=== PATIENT | female | born 1965 | race Caucasian/White ===

== ENCOUNTER → 2017-03-23 | Outpatient (CLI) | payer OTHER ==
[~2017-03-23] MED LIST: ACET-1256 PO; PRENTAB26 PO
[2017-03-23 14:47] LABS: BASO % 0.5 %; BASO ABS # 0.05 K/uL (0-0.2); COMPLETE YES; EOS % 13.1 %; HEMATOCRIT 44.3 % (37-47); IG% 0.1 %; LYMPH % 26.7 %; LYMPH ABS # 2.95 K/uL (1.2-3.4); MEAN CELL VOLUME 89.9 fL (80-100); MEAN CORPUSCULAR HEMOGLOBIN 28.4 pg (25-34); MEAN CORPUSCULAR HGB CONC 31.6 g/dl (32-36); MEAN PLATELET VOLUME 11.4 fL (7.4-10.4); MONO % 7.5 %; NEUT % 52.1 %; PLATELET COUNT 369 K/uL (130-400); RED BLOOD COUNT 4.93 M/uL (4.2-5.4); WHITE BLOOD COUNT 11.04 K/uL (4.8-10.8)
[2017-03-23 15:07] LABS: AMYLASE 47 U/L (25-115); BLOOD UREA NITROGEN 11 mg/dl (7-18); BUN/CREATININE RATIO 11.1 (10-20); CALCIUM 9.4 mg/dl (8.5-10.1); CARBON DIOXIDE 29 mmol/L (21-32); CHLORIDE 105 mmol/L (98-107); GLUCOSE 136 mg/dl (70-99); POTASSIUM 3.6 mmol/L (3.5-5.1); SODIUM 140 mmol/L (136-145)
== END | disposition home or self-care (01) ==
LOC: C.LAB1850 13:02
PROVIDERS: ATTEND Nurse Practitioner Adult Health
DX: E11.49 Type 2 diabetes mellitus with other diabetic neurological complication (principal); E11.65 Type 2 diabetes mellitus with hyperglycemia; E66.01 Morbid (severe) obesity due to excess calories; R94.6 Abnormal results of thyroid function studies

== ENCOUNTER → 2017-06-19 | Outpatient (CLI) | payer OTHER ==
[2017-06-19 12:21] LABS: ESTIMATED AVERAGE GLUCOSE 160 mg/dl; HA1C FLAG Normal (Normal)
== END | disposition home or self-care (01) ==
LOC: C.LAB1850 10:23
PROVIDERS: ATTEND Nurse Practitioner Adult Health
DX: E11.49 Type 2 diabetes mellitus with other diabetic neurological complication (principal)

== ENCOUNTER → 2017-06-23 | Outpatient (CLI) | payer OTHER ==
[2017-06-23 16:53] LABS: THYROID STIMULATING HORMONE 1.91 uIu/ml (0.300-4.500)
== END | disposition home or self-care (01) ==
LOC: C.LAB1850 15:12
PROVIDERS: ATTEND Nurse Practitioner Adult Health
DX: E11.65 Type 2 diabetes mellitus with hyperglycemia (principal); E11.49 Type 2 diabetes mellitus with other diabetic neurological complication; E66.01 Morbid (severe) obesity due to excess calories; R94.6 Abnormal results of thyroid function studies

== ENCOUNTER → 2017-11-17 | Outpatient (CLI) | payer OTHER ==
[2017-11-18 07:56] LABS: HEMOGLOBIN A1C 6.8 % (4.5-5.6)
== END | disposition home or self-care (01) ==
LOC: C.LAB1850 13:42
PROVIDERS: ATTEND Nurse Practitioner Adult Health
DX: E11.49 Type 2 diabetes mellitus with other diabetic neurological complication (principal)

== ENCOUNTER 2022-03-17 18:41 | Inpatient (IN) ==
[2022-03-17] MEDS ORDERED: SODIUM CHLORIDE 0.9% 1000ML 1,000 ML IV STA (18:59)
[2022-03-17] MEDS ORDERED: ONDANSETRON INJ 2 MG/ML 2 ML VIAL IV STA (18:59)
[2022-03-17 19:12] LABS: Basophils # (auto) 0.02 K/uL (0-0.2); Basophils % (auto) 0.1 %; Hematocrit (blood only) 43.5 % (34.1-44.9); Hemoglobin 14.2 g/dl (12.0-16.0); Immature Granulocytes # (auto) 0.06 K/uL (0.00-0.02); Immature Granulocytes % (auto) 0.4 %; Lymphocytes # (auto) 1.15 K/uL (1.2-3.4); Lymphocytes % (auto) 8.2 %; Mean Corpuscular Hemoglobin 28.7 pg (25.0-34.0); Mean Corpuscular Hgb Conc 32.6 g/dL (32.0-36.0); Mean Corpuscular Volume 87.9 fL (80.0-100.0); Mean Platelet Volume 10.9 fL (9.4-12.3); Monocytes # (auto) 0.72 K/uL (0.24-0.82); Monocytes % (auto) 5.2 %; Neutrophils # (auto) 12.01 K/uL (1.4-6.5); Neutrophils % (auto) 86.1 %; Platelet Count 464 K/uL (130-400); RDW Standard Deviation 51.7 fL (36.4-46.3); Red Blood Count 4.95 M/uL (3.93-5.22); White Blood Count 13.96 K/ul (4.8-10.8)
--- NOTE | 2022-03-17 19:20 | XRay Report ---
XR chest 1V portable HISTORY: Vomiting. COMPARISON: Chest CT 10/29/2019. FINDINGS: The lungs are clear. Cardiac silhouette is normal in size. No pleural effusions. No pneumot horax. IMPRESSION: No acute process. ACT 112: Negative or not required by law. Electronically signed by: Jan Gatica M.D. 03/17/2022 7:18 PM
--- NOTE | 2022-03-17 19:24 | Emergency Department Note ---
Impression & Plan DKA (diabetic ketoacidosis), Nausea, Metabolic acidosis ED Provider Note NAME: HUA CUNNINGHAM AGE: 56 SEX: F : 1965 ARRIVES VIA: Walk-In INFORMANT: Patient, ED PROVIDER(S): Joe Abernathy DO CHIEF COMPLAINT: Abdominal pain HPI: The patient is a 56-year-old female who presented to the emergency department for an evaluation of nausea. The patient states she had a history of gastric bypass. The patient states that she has had problems ever since the surgery where she will have some nausea. Recently symptoms have become much worse where she started to have dry heaving. She notices upper abdominal pain. She has had no vomiting because of the previous gastric bypass. She notices no diarrhea or fever. The patient called her surgeon today and was instructed to go to a clear liquid diet as well as use Zofran. These modalities have not been helping. The patient notices generalized weakness. She denies having any chest pain. She denies having any difficulty breathing. She is had no swelling in her legs. He denies having any GI bleeding. ROS: See above HPI for pertinent positives & negatives. A total of 10 systems reviewed and were otherwise negative. PAST MEDICAL HISTORY: See Below PAST SURGICAL HISTORY: See Below FAMILY HISTORY: See Below SOCIAL HISTORY: See Below HOME MEDICATIONS: See Below ALLERGIES: See Below VITALS: See Below PHYSICAL EXAMINATION: GENERAL: The patient is awake and alert. The patient is somewhat anxious appearing. She appears to be uncomfortable. EYES: The conjunctivae are clear. The pupils are round and reactive. EARS, NOSE, MOUTH AND THROAT: The nose is without any evidence of any deformity. NECK: The neck is nontender and supple. RESPIRATORY: Normal respiratory effort is noted there is no evidence of wheezing rhonchi or rales CARDIOVASCULAR: Tachycardic and regular heart sounds are noted auscultation. There is no definite murmur. GASTROINTESTINAL: The abdomen was soft. The abdomen was mildly distended. There was some tenderness in the epigastric region. There is no guarding rigidity. MUSCULOSKELETAL/EXTREMITIES: There is no evidence of gross deformity full range of motion is noted in the hips and shoulders. SKIN: There is no obvious evidence of any rash. There are no petechiae, pallor or cyanosis noted. NEUROLOGIC: Patient is awake alert and oriented x3. MEDICAL DECISION MAKING: The patient is a 56-year-old female who presented to the emergency department because she was acting inappropriately and had nausea. The patient has a history of diabetes. She also has a history of gastric bypass. The patient was treated with IV fluids and IV insulin in the emergency department. She was reevaluated multiple times. Her presentation appears to be consistent with DKA. I discussed her condition with her and her significant other. He states that she had a very similar episode and presented to [facility] recently and at that time she was also found to have DKA. I discussed the patient's laboratory and radiographic studies [facility] have agreed to evaluate the patient in the emergency department for further management and disposition. Triage Nursing notes reviewed. Prior medical records reviewed Vital Signs: reviewed and remarkable for hypertension and tachycardia. Differential diagnosis: Etiologies such as appendicitis, diverticulitis, obstruction, inflammatory bowel disease, renal colic, PUD, biliary pathology, pancreatitis, mesenteric ischemia, aortic pathology, infections, genitourinary, UTI, perforated viscus, as well as others were entertained. ER treatment provided: See below Diagnostics interpreted by me: ECG: EKG was obtained in the emergency department. My interpretation is sinus rhythm at 95 bpm. There is no ectopy. Early transition was noted. This was compared to a tracing from April 19, 2018. No changes were noted. Cardiac Monitoring: An order was placed for continuous cardiac monitoring. The monitor shows a rate of 170 bpm with sinus tachycardia. Laboratory studies: As stated above and show below. Imaging studies: See below Consultation(s): I discussed this case with Dr. Melendez who [facility] ED COURSE: Procedures: none Critical Care: I have personally spent greater than 65 minutes of critical care time in the direct management of this patient. This includes bedside care, interpretation of diagnostic studies, and testing, discussion with consultants, patient, and family members, and other required patient management activities. This 65 minutes is in excess of all separately billable procedures. Past Med/Surg History Medical History Depression with anxiety Diabetic peripheral neuropathy DJD (degenerative joint disease) Dysesthesia Dyslipidemia Elevated TSH Fatigue Hypertension Low calcium levels Myalgia and myositis Obesity, morbid, BMI 40.0-49.9 Obstructive sleep apnea Recurrent left upper quadrant abdominal pain Vitamin D insufficiency Surgical History Gastric bypass status for obesity H/O wisdom tooth extraction Family History Father Hypertension Coronary heart disease Diabetes Mother Hypertension Leukemia Hypothyroid Sister Hypothyroid Social History Smoking Status: Never smoker Hx Alcohol Use: No marital status: Feels Safe at Home: Yes Allergies Allergies Allergy/AdvReac Type Severity Reaction Status Date / Time liraglutide [From Victoza] Allergy Hives Verified 08/27/20 14:08 Home Meds Home Medications Medication Instructions Recorded Confirmed atorvastatin 10 mg tablet 10 mg PO DAILY 04/19/18 08/27/20 biotin 10,000 mcg capsule 10,000 mcg PO DAILY 04/19/18 08/27/20 bupropion HCl 150 mg tablet,12 hr 150 mg PO DAILY 04/19/18 08/27/20 sustained-release cholecalciferol (vitamin D3) 50 2,000 unit PO DAILY 04/19/18 08/27/20 mcg (2,000 unit) tablet (Vitamin D3) cyanocobalamin (vitamin B-12) 1,000 mcg PO DAILY 04/19/18 08/27/20 1,000 mcg tablet (Vitamin B-12) dulaglutide 1.5 mg/0.5 mL 1.5 mg subcut WK 04/19/18 08/27/20 subcutaneous pen injector (Trulicity) ferrous sulfate 325 mg (65 mg 325 mg PO DAILY 04/19/18 08/27/20 iron) tablet lisinopril 5 mg tablet 5 mg PO DAILY 04/19/18 08/27/20 metformin 1,000 mg tablet 1,000 mg PO BID 04/19/18 08/27/20 sertraline 100 mg tablet (Zoloft) 150 mg PO DAILY 04/19/18 08/27/20 meloxicam 15 mg tablet 15 mg PO DAILY 05/28/19 08/27/20 modafinil 200 mg tablet 200 mg PO DAILY 05/28/19 08/27/20 gabapentin .Route 08/27/20 Previous Rx's Medication Instructions Recorded blood sugar diagnostic #150 ea 05/18/20 flash glucose sensor (FreeStyle #2 ea 06/07/21 Contreras 2 Sensor kit) insulin glargine 100 unit/mL (3 See Rx Instructions .Route 11/01/21 mL) subcutaneous pen (Lantus .COMPLEX #30 mL Solostar U-100 Insulin) levothyroxine 100 mcg tablet 100 mcg PO DAILY #30 tabs 11/22/21 Apidra SoloStar U-100 Insulin 100 See Rx Instructions .Route 02/23/22 unit/mL subcutaneous pen (insulin .COMPLEX #15 mL glulisine U-100) pen needle, diabetic 32 gauge x #150 ea 02/23/22" (BD Ultra-Fine Alis Pen Needle) acetone (urine) test (Ketostix #50 ea 03/08/22 strips) Results & Data (ED) Vital Signs Vital Signs - 24 hr 03/17/22 18:42 03/17/22 19:00 03/17/22 19:00 Temperature 36.4 C L Temperature Source Oral Pulse Rate 117 H Respiratory Rate 19 Respiratory Effort / Characteristics Non-Labored Respiratory Depth Normal Blood Pressure 154/82 H Blood Pressure Mean 106 Pulse Oximetry 96 100 100 Oxygen Delivery Method Room Air Sepsis Recent Fever Within 48 Hours No Sepsis New/Unexplained Change in Mental Status N/A Sepsis Action Taken by Nursing No Action Required Home Medications Current Medication List: was personally reviewed by me Laboratory Data Attestation: I reviewed the patient's lab results. Result diagrams: 03/17/22 18:59 03/17/22 18:59 Lab Results 03/17/22 03/17/22 03/17/22 Range/Units 18:45 18:47 18:48 WBC (4.8-10.8) K/ul RBC (3.93-5.22) M/uL Hgb (12.0-16.0) g/dl Hct (34.1-44.9) % MCV (80.0-100.0) fL MCH (25.0-34.0) pg MCHC (32.0-36.0) g/dL RDW Std Deviation (36.4-46.3) fL RDW Coeff of Any (11.5-14.5) % Plt Count (130-400) K/uL MPV (9.4-12.3) fL Immature Gran % (Auto) % Neut % (Auto) % Lymph % (Auto) % [place] % (Auto) % Eos % (Auto) % Baso % (Auto) % Neut # (Auto) (1.4-6.5) K/uL Lymph # (Auto) (1.2-3.4) K/uL [place] # (Auto) (0.24-0.82) K/uL Eos # (Auto) (0-0.50) K/uL Baso # (Auto) (0-0.2) K/uL Immature Gran # (Auto) (0.00-0.02) K/uL VBG pH (7.36-7.41) VBG pCO2 (38-50) mmHg VBG pO2 mmHg VBG HCO3 mmol/L VBG O2 Saturation % VBG Base Excess mEq/L Sodium (136-145) mmol/L Potassium (3.5-5.1) mmol/L Chloride (98-107) mmol/L Carbon Dioxide (21-32) mmol/L Anion Gap (3-11) BUN (6-23) mg/dl Creatinine (0.6-1.2) mg/dl Est Cr Clr Drug Dosing Est GFR ( Amer) ml/min Est GFR (Non-Af Amer) ml/min BUN/Creatinine Ratio (10-20) Glucose (70-99(Fasting)) mg/dl POC Glucose 384 H* 469 H* 391 H* (70-99) mg/dl Lactate (0.4-2.0) mmol/L Calcium (8.5-10.1) mg/dl Total Bilirubin (0.2-1.0) mg/dl AST (13-39) U/L ALT (7-52) U/L Alkaline Phosphatase (34-104) U/L Troponin I High Sens (0-14) pg/ml Total Protein (6.0-8.3) gm/dl Albumin (3.4-5.0) gm/dl Globulin (2.5-4.0) gm/dl Albumin/Globulin Ratio (0.9-2) Lipase (11-82) U/L HCG, Qual (Negative) HCG, Quant mIU/ml Urine Color Urine Appearance (Clear) Urine pH (4.5-7.5) Ur Specific [place] (1.000-1.030) Urine Protein (Negative) Urine Glucose (UA) (Negative) Urine Ketones (Negative) Urine Blood (Negative) Urine Nitrite (Negative) Urine Bilirubin (Negative) Urine Urobilinogen (Negative) Ur Leukocyte Esterase (Negative) Urine WBC (Auto) (0-5) /hpf Urine RBC (Auto) (0-4) /hpf U Hyaline Cast (Auto) (0-5) /lpf U Epithel Cells (Auto) (0-5) /lpf Urine Bacteria (Auto) (Negative) SARS-CoV-2, RNA, NAAT (NEGATIVE) 03/17/22 03/17/22 03/17/22 Range/Units 18:59 18:59 18:59 WBC 13.96 H (4.8-10.8) K/ul RBC 4.95 (3.93-5.22) M/uL Hgb 14.2 (12.0-16.0) g/dl Hct 43.5 (34.1-44.9) % MCV 87.9 (80.0-100.0) fL MCH 28.7 (25.0-34.0) pg MCHC 32.6 (32.0-36.0) g/dL RDW Std Deviation 51.7 H (36.4-46.3) fL RDW Coeff of Any 16.0 H (11.5-14.5) % Plt Count 464 H (130-400) K/uL MPV 10.9 (9.4-12.3) fL Immature Gran % (Auto) 0.4 % Neut % (Auto) 86.1 % Lymph % (Auto) 8.2 % [place] % (Auto) 5.2 % Eos % (Auto) 0.0 % Baso % (Auto) 0.1 % Neut # (Auto) 12.01 H (1.4-6.5) K/uL Lymph # (Auto) 1.15 L (1.2-3.4) K/uL [place] # (Auto) 0.72 (0.24-0.82) K/uL Eos # (Auto) 0.00 (0-0.50) K/uL Baso # (Auto) 0.02 (0-0.2) K/uL Immature Gran # (Auto) 0.06 H (0.00-0.02) K/uL VBG pH (7.36-7.41) VBG pCO2 (38-50) mmHg VBG pO2 mmHg VBG HCO3 mmol/L VBG O2 Saturation % VBG Base Excess mEq/L Sodium 138 (136-145) mmol/L Potassium 3.3 L (3.5-5.1) mmol/L Chloride 101 (98-107) mmol/L Carbon Dioxide 11 L (21-32) mmol/L Anion Gap 26 H (3-11) BUN 15 (6-23) mg/dl Creatinine 1.21 H (0.6-1.2) mg/dl Est Cr Clr Drug Dosing Not Reportable Est GFR ( Amer) 58.7 ml/min Est GFR (Non-Af Amer) 50.7 ml/min BUN/Creatinine Ratio 12.4 (10-20) Glucose 408 H* (70-99(Fasting)) mg/dl POC Glucose (70-99) mg/dl Lactate (0.4-2.0) mmol/L Calcium 9.2 (8.5-10.1) mg/dl Total Bilirubin 0.3 (0.2-1.0) mg/dl AST 24 (13-39) U/L ALT 22 (7-52) U/L Alkaline Phosphatase 89 (34-104) U/L Troponin I High Sens 15.5 H (0-14) pg/ml Total Protein 7.3 (6.0-8.3) gm/dl Albumin 4.2 (3.4-5.0) gm/dl Globulin 3.1 (2.5-4.0) gm/dl Albumin/Globulin Ratio 1.4 (0.9-2) Lipase 20 (11-82) U/L HCG, Qual Positive (Negative) HCG, Quant mIU/ml Urine Color Urine Appearance (Clear) Urine pH (4.5-7.5) Ur Specific [place] (1.000-1.030) Urine Protein (Negative) Urine Glucose (UA) (Negative) Urine Ketones (Negative) Urine Blood (Negative) Urine Nitrite (Negative) Urine Bilirubin (Negative) Urine Urobilinogen (Negative) Ur Leukocyte Esterase (Negative) Urine WBC (Auto) (0-5) /hpf Urine RBC (Auto) (0-4) /hpf U Hyaline Cast (Auto) (0-5) /lpf U Epithel Cells (Auto) (0-5) /lpf Urine Bacteria (Auto) (Negative) SARS-CoV-2, RNA, NAAT (NEGATIVE) 03/17/22 03/17/22 03/17/22 Range/Units 18:59 19:10 19:25 WBC (4.8-10.8) K/ul RBC (3.93-5.22) M/uL Hgb (12.0-16.0) g/dl Hct (34.1-44.9) % MCV (80.0-100.0) fL MCH (25.0-34.0) pg MCHC (32.0-36.0) g/dL RDW Std Deviation (36.4-46.3) fL RDW Coeff of Any (11.5-14.5) % Plt Count (130-400) K/uL MPV (9.4-12.3) fL Immature Gran % (Auto) % Neut % (Auto) % Lymph % (Auto) % [place] % (Auto) % Eos % (Auto) % Baso % (Auto) % Neut # (Auto) (1.4-6.5) K/uL Lymph # (Auto) (1.2-3.4) K/uL [place] # (Auto) (0.24-0.82) K/uL Eos # (Auto) (0-0.50) K/uL Baso # (Auto) (0-0.2) K/uL Immature Gran # (Auto) (0.00-0.02) K/uL VBG pH 7.23 L (7.36-7.41) VBG pCO2 26 L (38-50) mmHg VBG pO2 36 mmHg VBG HCO3 11 mmol/L VBG O2 Saturation 61.5 % VBG Base Excess -15.0 mEq/L Sodium (136-145) mmol/L Potassium (3.5-5.1) mmol/L Chloride (98-107) mmol/L Carbon Dioxide (21-32) mmol/L Anion Gap (3-11) BUN (6-23) mg/dl Creatinine (0.6-1.2) mg/dl Est Cr Clr Drug Dosing Est GFR ( Amer) ml/min Est GFR (Non-Af Amer) ml/min BUN/Creatinine Ratio (10-20) Glucose (70-99(Fasting)) mg/dl POC Glucose (70-99) mg/dl Lactate 2.2 H* (0.4-2.0) mmol/L Calcium (8.5-10.1) mg/dl Total Bilirubin (0.2-1.0) mg/dl AST (13-39) U/L ALT (7-52) U/L Alkaline Phosphatase (34-104) U/L Troponin I High Sens (0-14) pg/ml Total Protein (6.0-8.3) gm/dl Albumin (3.4-5.0) gm/dl Globulin (2.5-4.0) gm/dl Albumin/Globulin Ratio (0.9-2) Lipase (11-82) U/L HCG, Qual (Negative) HCG, Quant 10 mIU/ml Urine Color Urine Appearance (Clear) Urine pH (4.5-7.5) Ur Specific [place] (1.000-1.030) Urine Protein (Negative) Urine Glucose (UA) (Negative) Urine Ketones (Negative) Urine Blood (Negative) Urine Nitrite (Negative) Urine Bilirubin (Negative) Urine Urobilinogen (Negative) Ur Leukocyte Esterase (Negative) Urine WBC (Auto) (0-5) /hpf Urine RBC (Auto) (0-4) /hpf U Hyaline Cast (Auto) (0-5) /lpf U Epithel Cells (Auto) (0-5) /lpf Urine Bacteria (Auto) (Negative) SARS-CoV-2, RNA, NAAT (NEGATIVE) 03/17/22 03/17/22 03/17/22 Range/Units 20:45 21:05 21:53 WBC (4.8-10.8) K/ul RBC (3.93-5.22) M/uL Hgb (12.0-16.0) g/dl Hct (34.1-44.9) % MCV (80.0-100.0) fL MCH (25.0-34.0) pg MCHC (32.0-36.0) g/dL RDW Std Deviation (36.4-46.3) fL RDW Coeff of Any (11.5-14.5) % Plt Count (130-400) K/uL MPV (9.4-12.3) fL Immature Gran % (Auto) % Neut % (Auto) % Lymph % (Auto) % [place] % (Auto) % Eos % (Auto) % Baso % (Auto) % Neut # (Auto) (1.4-6.5) K/uL Lymph # (Auto) (1.2-3.4) K/uL [place] # (Auto) (0.24-0.82) K/uL Eos # (Auto) (0-0.50) K/uL Baso # (Auto) (0-0.2) K/uL Immature Gran # (Auto) (0.00-0.02) K/uL VBG pH (7.36-7.41) VBG pCO2 (38-50) mmHg VBG pO2 mmHg VBG HCO3 mmol/L VBG O2 Saturation % VBG Base Excess mEq/L Sodium (136-145) mmol/L Potassium (3.5-5.1) mmol/L Chloride (98-107) mmol/L Carbon Dioxide (21-32) mmol/L Anion Gap (3-11) BUN (6-23) mg/dl Creatinine (0.6-1.2) mg/dl Est Cr Clr Drug Dosing Est GFR ( Amer) ml/min Est GFR (Non-Af Amer) ml/min BUN/Creatinine Ratio (10-20) Glucose (70-99(Fasting)) mg/dl POC Glucose 288 H (70-99) mg/dl Lactate (0.4-2.0) mmol/L Calcium (8.5-10.1) mg/dl Total Bilirubin (0.2-1.0) mg/dl AST (13-39) U/L ALT (7-52) U/L Alkaline Phosphatase (34-104) U/L Troponin I High Sens (0-14) pg/ml Total Protein (6.0-8.3) gm/dl Albumin (3.4-5.0) gm/dl Globulin (2.5-4.0) gm/dl Albumin/Globulin Ratio (0.9-2) Lipase (11-82) U/L HCG, Qual (Negative) HCG, Quant mIU/ml Urine Color Yellow Urine Appearance Clear (Clear) Urine pH 5.5 (4.5-7.5) Ur Specific [place] 1.028 (1.000-1.030) Urine Protein 1+ H (Negative) Urine Glucose (UA) 3+ H (Negative) Urine Ketones 4+ H (Negative) Urine Blood 2+ H (Negative) Urine Nitrite Negative (Negative) Urine Bilirubin Negative (Negative) Urine Urobilinogen Negative (Negative) Ur Leukocyte Esterase Negative (Negative) Urine WBC (Auto) 1-5 (0-5) /hpf Urine RBC (Auto) 0-4 (0-4) /hpf U Hyaline Cast (Auto) 5-10 H (0-5) /lpf U Epithel Cells (Auto) 10-20 H (0-5) /lpf Urine Bacteria (Auto) Negative (Negative) SARS-CoV-2, RNA, NAAT NEGATIVE (NEGATIVE) Administered Medications Discontinued Medications Sodium Chloride (Nss 1000ml) 1,000 mls @ 999 mls/hr IV .Q1H1M STA Stop: 03/17/22 19:59 Last Infusion: 03/17/22 20:09 Dose: 0 mls/hr Documented By: Admin: 03/17/22 19:34 Dose: 999 mls/hr Documented By: KELLY Sodium Chloride (Nss 1000ml) 1,000 mls @ 999 mls/hr IV .Q1H1M ONE Stop: 03/17/22 20:53 Last Infusion: 03/17/22 21:10 Dose: 0 mls/hr Documented By: Admin: 03/17/22 20:09 Dose: 999 mls/hr Documented By: KELLY Potassium Chloride (K Dewey / Wtr) 10 meq in 100 mls @ 100 mls/hr IV ONE ONE; Protocol Stop: 03/17/22 22:04 Last Admin: 03/17/22 21:30 Dose: 100 mls/hr Documented By: KELLY Sodium Chloride (Nss 1000ml) 1,000 mls @ 999 mls/hr IV .Q1H1M ONE Stop: 03/17/22 22:05 Last Admin: 03/17/22 21:30 Dose: 999 mls/hr Documented By: KELLY Ioversol (Optiray 320 100ml) 94 ml IV ONCE ONE Stop: 03/17/22 20:38 Last Admin: 03/17/22 20:39 Dose: 94 ml Documented By: LUIGI Ondansetron HCl (Ondansetron Inj 2 Mg/Ml 2 Ml Vial) 4 mg IV NOW STA Stop: 03/17/22 19:00 Last Admin: 03/17/22 19:33 Dose: 4 mg Documented By: KELLY Imaging Data Radiologist's Impression: Abdomen/Pelvis CT 03/17/22 18:[address] WITH IV CONTRAST CT DOSE: 757.57 mGy.cm HISTORY: vomiting TECHNIQUE: Multiaxial CT images of the abdomen and pelvis were performed following the use of intravenous contrast. A dose lowering technique was utilized adhering to the principles of ALARA. COMPARISON STUDY: Abdomen and pelvis CT 04/19/2018. FINDINGS: The lung bases are essentially clear. No pneumoperitoneum. No pneuma tosis. No fractures within the visualized osseous structures. Focal soft tissue density within the left anterior abdominal wall likely represents an area of scarring from a prior port site. Small areas of focal fat within the left hepatic lobe adjacent to the falciform ligament. There are few small gallstones. No gallbladder wall thickening. The main portal vein is patent. The pancreas, adrenal glands, and kidneys are unremarkable. No hydronephrosis. Stable subtle 8 mm hypodense lesion within the splenic dome. This is likely benign. Normal caliber abdominal aorta. No retroperitoneal lymphadenopathy. The bladder, uterus, bilateral adnexa are unremarkable. No pelvic free fluid or pelvic lympha denopathy. No bowel wall thickening or obstruction. A few colonic diverticulosis. No evidence for acute diverticulitis. Normal appendix. IMPRESSION: 1. No bowel wall thickening or obstruction. 2. Normal appendix. 3. Isaias-en-Y gastric bypass. 4. Cholelithiasis. No gallbladder wall thickening. ACT 112: Negative or not required by law. Electronically signed by: Jan Gatica M.D. 03/17/2022 8:53 PM Chest X-Ray 03/17/22 19:00 XR chest 1V portable HISTORY: Vomiting. COMPARISON: Chest CT 10/29/2019. FINDINGS: The lungs are clear. Cardiac silhouette is normal in size. No pleural effusions. No pneumothorax. IMPRESSION: No acute process. ACT 112: Negative or not required by law. Electronically signed by: Jan Gatica M.D. 03/17/2022 7:18 PM Discharge Plan Visit Data Chief Complaint: Illness Stated Complaint: GASTRIC BYPASS YESTERDAY, SLURRING WORDS, AMS ED Provider: Joe Abernathy Discharge Problem: DKA (diabetic ketoacidosis), Nausea, Metabolic acidosis Patient Disposition: Being Evaluated by Hospitalist Forms Stand Alone Forms: My [facility] Prescriptions Prescriptions: No Action (DME) blood sugar diagnostic Strip See Rx Instructions .ROUTE .MEDSUPPLY Qty: 150 5RF Rx Instructions: testing 4-5 times a day (DME) FreeStyle Contreras 2 Sensor Kit See Rx Instructions .ROUTE .MEDSUPPLY Qty: 2 11RF Rx Instructions: Change every 14 days Lantus Solostar U-100 Insulin 100 unit/mL (3 mL) insulin pen See Rx Instructions .ROUTE .COMPLEX Qty: 30 2RF Dose Instruction: INJECT 60 UNITS SUBCUTANEOUSLY ONCE DAILY Rx Instructions: INJECT 60 UNITS SUBCUTANEOUSLY ONCE DAILY Apidra SoloStar U-100 Insulin 100 unit/mL insulin pen See Rx Instructions .ROUTE .COMPLEX Qty: 15 5RF Rx Instructions: Inject up to 45 units a day. May titrate as needed. (DME) pen needle, diabetic [BD Ultra-Fine Alis Pen Needle] 32 gauge x 5/32" needle See Rx Instructions [id number] .MEDSUPPLY Qty: 150 11RF Rx Instructions: As directed to use with Apidra pen up to 4 times a days (DME) Ketostix Strip See Rx Instructions miscellaneous .MEDSUPPLY Qty: 50 11RF Rx Instructions: check if blood sugar > 250 for 4 hours gabapentin .Route Rx Instructions: 1 X Daily unsure of dose levothyroxine 100 mcg tablet 100 mcg PO DAILY Qty: 30 4RF meloxicam 15 mg tablet 15 mg PO DAILY modafinil 200 mg tablet 200 mg PO DAILY bupropion HCl 150 mg Tablet Extended Release 12 Hr 150 mg PO DAILY atorvastatin 10 mg Tablet 10 mg PO DAILY sertraline [Zoloft] 100 mg Tablet 150 mg PO DAILY cyanocobalamin (vitamin B-12) [Vitamin B-12] 1,000 mcg Tablet 1,000 mcg PO DAILY biotin 10,000 mcg Capsule 10,000 mcg PO DAILY ferrous sulfate 325 mg (65 mg iron) Tablet 325 mg PO DAILY metformin 1,000 mg Tablet 1,000 mg PO BID lisinopril 5 mg Tablet 5 mg PO DAILY cholecalciferol (vitamin D3) [Vitamin D3] 2,000 unit Tablet 2,000 unit PO DAILY dulaglutide [Trulicity] 1.5 mg/0.5 mL Pen Injector 1.5 mg subcut WK Rx Instructions: monday Referrals Referrals: Shannen Best PA-C [Primary Care Provider] -
[2022-03-17 19:33] LABS: HCO3 VBG 11 mmol/L; Oxygen Saturation VBG 61.5 %; PCO2 VBG 26 mmHg (38-50); PO2 VBG 36 mmHg; pH VBG 7.23 (7.36-7.41)
[2022-03-17 19:52] LABS: Alanine Aminotransferase 22 U/L (7-52); Albumin Globulin Ratio 1.4 (0.9-2); Albumin Level 4.2 gm/dl (3.4-5.0); Alkaline Phosphatase 89 U/L (34-104); Anion Gap 26 (3-11); Aspartate Aminotransferase 24 U/L (13-39); BUN Creatinine Ratio 12.4 (10-20); Bilirubin,Total 0.3 mg/dl (0.2-1.0); Blood Urea Nitrogen 15 mg/dl (6-23); Calcium 9.2 mg/dl (8.5-10.1); Carbon Dioxide 11 mmol/L (21-32); Chloride 101 mmol/L (98-107); Est GFR (African American) 58.7 ml/min; Est GFR (Non-African American) 50.7 ml/min; Globulin 3.1 gm/dl (2.5-4.0); Glucose 408 mg/dl (70-99(Fasting)); Lipase 20 U/L (11-82); Potassium 3.3 mmol/L (3.5-5.1); Sodium 138 mmol/L (136-145); Total Protein 7.3 gm/dl (6.0-8.3)
[2022-03-17 19:53] LABS: Troponin I High Sensitivity 15.5 pg/ml (0-14)
[2022-03-17] MEDS ORDERED: SODIUM CHLORIDE 0.9% 1000ML 1,000 ML IV ONE ×2 (19:53→21:05)
[2022-03-17] MEDS ORDERED: OPTIRAY 320 100ml IV ONE (20:37)
[2022-03-17 20:55] LABS: Pregnancy Test, Serum Positive (Negative)
--- NOTE | 2022-03-17 20:55 | CT Scan Report ---
ABDOMEN AND PELVIS CT WITH IV CONTRAST CT DOSE: 757.57 mGy.cm HISTORY: vomiting TECHNIQUE: Multiaxial CT images of the abdomen and pelvis were performed following the use of intrave nous contrast. A dose lowering technique was utilized adhering to the principles of ALARA. COMPARISON STUDY: Abdomen and pelvis CT 04/19/2018. FINDINGS: The lung bases are essentially clear. No pneumoperitoneum. No pneumatosis. No fractures wit hin the visualized osseous structures. Focal soft tissue density within the left anterior abdominal w all likely represents an area of scarring from a prior port site. Small areas of focal fat within the left hepatic lobe adjacent to the falciform ligament. There are few small gallstones. No gallbladder wall thickening. The main portal vein is patent. The pancreas, adrenal glands, and kidneys are unrem arkable. No hydronephrosis. Stable subtle 8 mm hypodense lesion within the splenic dome. This is like ly benign. Normal caliber abdominal aorta. No retroperitoneal lymphadenopathy. The bladder, uterus, b ilateral adnexa are unremarkable. No pelvic free fluid or pelvic lymphadenopathy. No bowel wall thick ening or obstruction. A few colonic diverticulosis. No evidence for acute diverticulitis. Normal appe ndix. IMPRESSION: 1. No bowel wall thickening or obstruction. 2. Normal appendix. 3. Isaias-en-Y gastric bypass. 4. Cholelithiasis. No gallbladder wall thickening. ACT 112: Negative or not required by law. Electronically signed by: Jan Gatica M.D. 03/17/2022 8:53 PM
[2022-03-17] MEDS ORDERED: GLUCOSE 40% GEL 15 GM TUBE PO PRN (21:05)
[2022-03-17] MEDS ORDERED: DKA GOAL RANGE 150-250 mg/dl ONE (21:05)
[2022-03-17] MEDS ORDERED: STAT INSULIN DRIP STA (21:05)
[2022-03-17] MEDS ORDERED: POTASSIUM CHLORIDE / WTR 10 MEQ/100 ML PLCT IV ONE (21:05)
[2022-03-17] MEDS ORDERED: GLUCAGON FOR INJ 1 MG VIAL SQ PRN (21:05)
[2022-03-17] MEDS ORDERED: DEXTROSE 50% 50 ML SYRINGE IV PRN (21:05)
[2022-03-17] MEDS ORDERED: GLUCOSE 10 TAB/TUBE PO PRN (21:05)
[2022-03-17] MEDS ORDERED: CARBOHYDRATES FOR HYPOGLYCEMIA PO PRN (21:05)
[2022-03-17] MEDS ORDERED: INSULIN REGULAR 250 UNITS in SODIUM CHLORIDE 0.9% 247.5 ML IV SCH (21:15)
[2022-03-17 21:25] LABS: Appearance Urine Clear (Clear); Bacteria Urine Automated Negative (Negative); Bilirubin Urine Negative (Negative); Blood Urine 2+ (Negative); Color Urine Yellow; Glucose Urine UA 3+ (Negative); Ketones Urine 4+ (Negative); Leukocyte Esterase Urine Negative (Negative); Nitrite Urine Negative (Negative); Protein Urine 1+ (Negative); RBC Urine Automated 0-4 /hpf (0-4); Specific Gravity Urine 1.028 (1.000-1.030); Urobilinogen Urine Negative (Negative); pH Urine 5.5 (4.5-7.5)
--- NOTE | 2022-03-17 21:30 | History & Physical Report ---
Date of Service March 17, 2022 Assessment & Plan (1) DKA (diabetic ketoacidosis): Plan: 56yo female with IDDM2, HTN, HLD, hypothyroidism, narcolepsy, DEO, MDD, history of DKA (02/2022 at [facility]), and a history of gastric bypass surgery (12/2021 at [facility]) presents in DKA. DKA On admission, VBG pH 7.23, anion gap 26, potassium 3.3, bicarb 11, glucose 408 Insulin gtt per protocol Received 3L NSS in ED D5 08/15 NSS + 40 mEq KCl @ 250mL/hr BSG q1h ordered BMP, magnesium, phosphorous, and VBG q4h Once anion gap closes, switch from insulin gtt to sq Diabetic education consult placed, recommendations appreciated HbA1c 7.6% (11/15/2021), repeat pending Given patient's AG of 26 and bicarb of 11, will admit to ICU; case discussed with overnight intensivitst Stat ABG ordered Elevated troponin On admission, hsTroponin elevated to 15.5, repeat value pending EKG: NSR, no overt sign of ischemic change Patient without CP at this time HTN: BP elevated to 150s/80s on admission, holding home meds while NPO HLD: holding home meds while NPO Hypothyroidism: holding home meds while NPO DEO, MDD: holding home meds while NPO Narcolepsy: holding home meds while NPO FEN: NPO, IVF as above Code status: full code DVT ppx: SCDs Consults: group leader Dispo: ICU (2) Controlled type 2 diabetes mellitus with neurologic complication, with long- term current use of insulin: (3) Nausea: (4) Hypothyroidism: History of Present Illness Primary Care Provider: Shannen Best 56yo female with IDDM2, HTN, HLD, hypothyroidism, narcolepsy, DEO, MDD, history of DKA (02/2022 at [facility]), and a history of gastric bypass surgery (12/2021 at [facility]) presents with a three-day history of worsening nausea. Patient notes nausea since her surgery (December 2021 at [facility]) but this has been worsening recently. Also notes upper abdominal pain and generalized weakness. Patient began feeling unwell while at work today and presented to the ED. Of note, patient has a history of DKA one month ago at [facility]. Patient notes she has had a low appetite over the past few days but has still been eating meals and covering with insulin. Patient had 7u short-acting insulin this morning with breakfast. Patient denies fever, chills, headache, vision changes, CP, palpitations, SOB, edema, abdominal pain, vomiting, dysuria, hematochezia, melena, lightheadedness, dizziness, numbness, tingling, or other symptoms. Denies recent illness and recent travel. Upon arrival, vitals were notable for elevated BP to 150s/80s and tachycardia to the mid-110s. No tachypnea, patient afebrile, spO2 adequate on room air. Initial labs were notable for mild leukocytosis (14.0), thrombocytosis (464), mild hypokalemia (3.3), slightly elevated creatinine (1.21, baseline ~0.8), hyperglycemia (408), elevated lactate (2.2), anion gap (26), slightly elevated hsTroponin (15.5). LFTs and lipase not elevated. VBG was notable for metabolic acidosis (pH 7.23). In the ED, patient was started on an insulin drip, given NSS 1L bolus (x3), and KCl 10mEq IV (x1). EKG: NSR, no sign of ischemic change. CXR was negative. CT abdomen/pelvis was notable for cholelithiasis without gallbladder wall thickening, and craig-en-Y gastric bypass; no bowel wall thickening and no obstruction noted. Surrogate decision-maker in case of an emergency: cary Rodriguez (cell: [phone]) Allergies Allergy/AdvReac Type Severity Reaction Status Date / Time liraglutide [From Victoza] Allergy Hives Verified 03/17/22 22:45 Home Medications Medication Instructions Recorded Confirmed Type atorvastatin 10 mg tablet 10 mg PO DAILY 04/19/18 03/17/22 History bupropion HCl 150 mg tablet,12 hr 150 mg PO DAILY 04/19/18 03/17/22 History sustained-release cholecalciferol (vitamin D3) 50 2,000 unit PO DAILY 04/19/18 03/17/22 History mcg (2,000 unit) tablet (Vitamin D3) cyanocobalamin (vitamin B-12) 1,000 mcg PO DAILY 04/19/18 03/17/22 History 1,000 mcg tablet (Vitamin B-12) lisinopril 5 mg tablet 5 mg PO DAILY 04/19/18 03/17/22 History metformin 1,000 mg tablet 1,000 mg PO BID 04/19/18 03/17/22 History sertraline 100 mg tablet (Zoloft) 150 mg PO DAILY 04/19/18 03/17/22 History modafinil 200 mg tablet 200 mg PO DAILY 05/28/19 03/17/22 History levothyroxine 100 mcg tablet 100 mcg PO DAILY #30 tabs 11/22/21 03/17/22 Rx Apidra SoloStar U-100 Insulin 100 See Rx Instructions .Route 02/23/22 03/17/22 Rx unit/mL subcutaneous pen (insulin .COMPLEX #15 mL glulisine U-100) Liquid Calcium Citrate & D3 2 tbsp PO DAILY 03/17/22 03/17/22 History acetaminophen 500 mg tablet 500 mg PO Q6H PRN Pain 03/17/22 03/17/22 History (Tylenol Extra Strength) gabapentin 300 mg capsule 300 mg PO HS 03/17/22 03/17/22 History qyldktzq-ozmtyybs-lyjf 8 mg-folic 1 tab PO DAILY 03/17/22 03/17/22 History ac 400 mcg-vit K 10 mcg chew tablet (Centrum Chewables) Past Med/Surg History Medical History Depression with anxiety Diabetic peripheral neuropathy DJD (degenerative joint disease) Dysesthesia Dyslipidemia Elevated TSH Fatigue Hypertension Hypothyroidism Low calcium levels Myalgia and myositis Obesity, morbid, BMI 40.0-49.9 Obstructive sleep apnea Recurrent left upper quadrant abdominal pain Vitamin D insufficiency Surgical History Gastric bypass status for obesity H/O wisdom tooth extraction Family History Father Hypertension Coronary heart disease Diabetes Mother Hypertension Leukemia Hypothyroid Sister Hypothyroid Social History Smoking Status: Never smoker Hx Alcohol Use: No Hx Substance Use: No Preferred Language: Canadian Communication Ability: Effective Automatic Seamer Required: No Beliefs That Will Affect Care: None marital status: Current Living Situation: Significant Other Other Information That Helps Us Care for You: No Feels Safe at Home: Yes Safety Concerns: Feels Safe At This Time Assistive Devices: None Physical Exam Physical Exam: Constitutional: tired-appearing, somnolent, no acute distress HEENT: NCAT, no conjunctival injection, no scleral icterus CV: regular rhythm, no murmur appreciated, extremities well-perfused, no LE edema Resp: CTABL, no wheezes/rales/rhonchi appreciated, no increased work of breathing GI: soft, nondistended, nontender, BS normoactive MSK: no gross deformities appreciated Skin: warm, dry, no rash appreciated Neuro: somnolent but arousable, oriented, answers questions appropriately, no focal neurologic deficit appreciated Results & Data Results & Data ([facility]) Vital Signs (Past 12 Hours) Vital Signs Temp Pulse Resp BP Pulse Ox O2 Del Method 03/17/22 19:00 100 03/17/22 19:00 100 03/17/22 18:42 36.4 C L 117 H 19 154/82 H 96 Room Air Critical Care Time 45 minutes Supervising Physician Co-Signing Physician Notes Attending addendum: I have physically seen this patient, have supervised the medical residents activities, and agree with the H&P unless as otherwise noted. Assessment and Plan: DKA- Insulin drip per protocol Status post 3 L normal saline bolus in the ED D5 half-normal saline +40 mEq KCl at 2050 mils per hour [facility] nightly hours ordered Follow serial BMP magnesium phosphorus and VBG every 4 hours Target for insulin drip is negative anion gap Anion gap 26, bicarb 11, patient will need to be admitted to the ICU Elevated troponin- High since her troponin 15.5 on admission Likely type II supply demand mismatch follow serially Remaining orders and notations as noted Resident Activity Tracking Resident Involvement: Resident Care Provided and Spray Cementer Coverage Note Care Provided: Adult Hospital Medicine (1) DKA (diabetic ketoacidosis) Diabetes mellitus complication detail: with coma Diabetes mellitus type: other specified (including WM) Qualified Code(s): E13.11 - Other specified diabetes mellitus with ketoacidosis with coma
[2022-03-17 22:47] LABS: Base Excess ABG -15.1 mEq/L (-9-1.8); HCO3 ABG 9 mmol/L (19-24); Oxygen Saturation ABG > 100.0 % (90-95); PCO2 ABG 20 mmHg (35-46); PO2 ABG 110 mmHg (80-95); pH ABG 7.28 (7.35-7.45)
[2022-03-17 22:50] LABS: Allen Test Pos (Pos)
[2022-03-17] MEDS: POTASSIUM CHLORIDE 40 MEQ in D5W AND 1/2NSS 1,000 ML IV SCH (23:40)
[2022-03-18 00:12] LABS: Anion Gap 21 (3-11); BUN Creatinine Ratio 13.4 (10-20); Blood Urea Nitrogen 13 mg/dl (6-23); Calcium 7.4 mg/dl (8.5-10.1); Carbon Dioxide 11 mmol/L (21-32); Chloride 109 mmol/L (98-107); Est GFR (African American) 76.7 ml/min; Est GFR (Non-African American) 66.2 ml/min; Glucose 314 mg/dl (70-99(Fasting)); Potassium 3.3 mmol/L (3.5-5.1); Sodium 141 mmol/L (136-145)
[2022-03-18] MEDS ORDERED: ICU PROTOCOL FOR HYPERGLYCEMIA PRN (00:49)
[2022-03-18] MEDS ORDERED: SODIUM CHLORIDE 0.9% 1000ML 1,000 ML IV SCH (00:49)
[2022-03-18] MEDS ORDERED: MELATONIN 3 MG TAB PO PRN (00:49)
[2022-03-18] MEDS ORDERED: PHARMACY GLYCEMIC MGMT CONSULT PRN (00:49)
[2022-03-18] MEDS ORDERED: DKA GOAL RANGE 150-250 mg/dl ONE (00:49)
[2022-03-18] MEDS ORDERED: PENDING D5 1/2NS+40mEq KCL IVF SCH (00:49)
[2022-03-18] MEDS ORDERED: INSULIN REGULAR 250 UNITS in SODIUM CHLORIDE 0.9% 247.5 ML IV SCH (00:49)
[2022-03-18] MEDS ORDERED: DC ALL PREVIOUSLY ORDERED DIABETES MEDS ONE (00:49)
[2022-03-18] MEDS ORDERED: STAT IV Infusion **Titration per Protocol STA (00:49)
[2022-03-18] MEDS ORDERED: PENDING 1/2NSS+40mEq KCL IVF SCH (00:49)
[2022-03-18] MEDS ORDERED: ONDANSETRON INJ 2 MG/ML 2 ML VIAL IV PRN (00:57)
[2022-03-18] MEDS ORDERED: GLUCAGON FOR INJ 1 MG VIAL IM PRN (01:15)
[2022-03-18] MEDS ORDERED: DEXTROSE 50% 50 ML SYRINGE IV PRN (01:15)
[2022-03-18] MEDS ORDERED: GLUCOSE 10 TAB/TUBE PO PRN (01:15)
[2022-03-18] MEDS ORDERED: GLUCOSE 40% GEL 15 GM TUBE PO PRN (01:15)
[2022-03-18] MEDS ORDERED: CARBOHYDRATES FOR HYPOGLYCEMIA PO PRN (01:15)
--- NOTE | 2022-03-18 01:50 | Critical Care Consultation ---
Date of Consultation March 18, 2022 Assessment & Plan (1) Admitted to intensive care unit: Reason Critically Ill: 56-year-old female presenting in DKA. Requiring close laboratory monitoring, electrolyte replacement, insulin drip monitoring, and IV fluid status. NEURO - * CAM ICU: NEGATIVE CARDIAC/VASCULAR - * Hypertension, dyslipidemia: * Restart home Rx when clinically appropriate. * EKG: SR w/ Sinus arrhythmia at [address]/T-wave changes noted. QTc 454 ms. * Monitor on telemetry. RESPIRATORY - * No h/o pulmonary disease. * Saturating well on room air. GI/NUTRITION - * NPO overnight. RENAL/LYTES - * HAGMA: * In the setting of DKA. * Hypokalemia: * Continue to replace appropriately. * TOMAS: * Likely 2/2 hypovolemia. - * No concerns at this time. ENDO - * DKA * BSGs per unit protocol. ISS --> gtt per unit policy. * Hypothyroidism: * Continue home Rx as tolerated. HEME - * Stable H&H ID - * No exam or diagnostic findings suggestive of infectious state. * Repeat Lactate. * Check PCT. LINES/IV ACCESS - * PIVs x2 DVT PROPHYLAXIS - * SCDs I have personally spent 32 minutes of critical care time in the direct management of this patient. This is a life/limb threatening event. This includes time spent evaluating patient, direct bedside care, chart review, placing orders, interpretation of diagnostic studies, discussion with consultants, patient, and family members, as well as other required patient management activities. This time is exclusive of all separately billable procedures, and teaching time and separate from and in addition to any other critical care service time. Thank you for allowing us to participate in the care of this patient. Please refer to my attending physician's documentation for any further recommendations. (2) DKA (diabetic ketoacidosis): (3) Controlled type 2 diabetes mellitus with neurologic complication, with long- term current use of insulin: (4) Nausea: (5) Metabolic acidosis: (6) Gastric bypass status for obesity: History of Present Illness Attending Physician: Heriberto Melendez MD History of Present Illness Patient is a 56-year-old female with significant past medical history of diabetes, hypertension, dyslipidemia, depression, anxiety, and recent Isaias-en-Y surgery in December of this year. Patient has had nausea and abdominal pain for the last 3 days. [facility]. Unfortunately, her symptoms have seemed to worsen throughout the day which prompted visit to the emergency department. She was noted to have a leukocytosis. No fevers. She was found to be in DKA as well. She was hydrated and started on insulin drip. Her electrolytes are being replaced. CT abdomen pelvis without acute findings. Allergies Allergy/AdvReac Type Severity Reaction Status Date / Time liraglutide [From Victoza] Allergy Hives Verified 03/17/22 22:45 Home Medications Medication Instructions Recorded Confirmed Type atorvastatin 10 mg tablet 10 mg PO DAILY 04/19/18 03/17/22 History bupropion HCl 150 mg tablet,12 hr 150 mg PO DAILY 04/19/18 03/17/22 History sustained-release cholecalciferol (vitamin D3) 50 2,000 unit PO DAILY 04/19/18 03/17/22 History mcg (2,000 unit) tablet (Vitamin D3) cyanocobalamin (vitamin B-12) 1,000 mcg PO DAILY 04/19/18 03/17/22 History 1,000 mcg tablet (Vitamin B-12) lisinopril 5 mg tablet 5 mg PO DAILY 04/19/18 03/17/22 History metformin 1,000 mg tablet 1,000 mg PO BID 04/19/18 03/17/22 History sertraline 100 mg tablet (Zoloft) 150 mg PO DAILY 04/19/18 03/17/22 History modafinil 200 mg tablet 200 mg PO DAILY 05/28/19 03/17/22 History levothyroxine 100 mcg tablet 100 mcg PO DAILY #30 tabs 11/22/21 03/17/22 Rx Apidra SoloStar U-100 Insulin 100 See Rx Instructions .Route 02/23/22 03/17/22 Rx unit/mL subcutaneous pen (insulin .COMPLEX #15 mL glulisine U-100) Liquid Calcium Citrate & D3 2 tbsp PO DAILY 03/17/22 03/17/22 History acetaminophen 500 mg tablet 500 mg PO Q6H PRN Pain 03/17/22 03/17/22 History (Tylenol Extra Strength) gabapentin 300 mg capsule 300 mg PO HS 03/17/22 03/17/22 History vzvoqdlk-fdxznsve-axdv 8 mg-folic 1 tab PO DAILY 03/17/22 03/17/22 History ac 400 mcg-vit K 10 mcg chew tablet (Centrum Chewables) Patient History Medical History Depression with anxiety Diabetic peripheral neuropathy DJD (degenerative joint disease) Dysesthesia Dyslipidemia Elevated TSH Fatigue Hypertension Hypothyroidism Low calcium levels Myalgia and myositis Obesity, morbid, BMI 40.0-49.9 Obstructive sleep apnea Recurrent left upper quadrant abdominal pain Vitamin D insufficiency Surgical History Gastric bypass status for obesity H/O wisdom tooth extraction Family History Father Hypertension Coronary heart disease Diabetes Mother Hypertension Leukemia Hypothyroid Sister Hypothyroid Social History Smoking Status: Never smoker Hx Alcohol Use: No Hx Substance Use: No Preferred Language: Bulgarian Communication Ability: Effective Freight Inspector Required: No Beliefs That Will Affect Care: None marital status: Current Living Situation: Significant Other Other Information That Helps Us Care for You: No Feels Safe at Home: Yes Safety Concerns: Feels Safe At This Time Assistive Devices: None Review of Systems Review of Systems: A complete 10 point review of systems was reviewed with the patient with pertinent positives and negatives as per history of present illness. All else were negative. Physical Exam Physical Exam: VITAL SIGNS - Vital signs and nursing notes were reviewed. GENERAL - 56-year-old female appearing her stated age who is in no acute distress. Communicates well with provider and answers questions appropriately. HEAD - NC/AT. EYES - PERRL with EOMI bilaterally. Sclera anicteric. Palpebral conjunctiva pink and moist with no injection noted. EARS - No deformities of external structures noted on gross examination bilaterally. NOSE - Midline and without cyanosis. MOUTH/OROPHARYNX - Without perioral cyanosis. Buccal mucosa pink and moist. NECK - Neck with FROM. Supple to palpation. No nuchal rigidity. LUNGS - Chest wall symmetric without accessory muscle use, intercostals retractions, or central cyanosis. Normal vesicular breath sounds CTA B/L. No wheezes, rales, or rhonchi appreciated. CARDIAC - RRR with S1/S2. No murmur, rubs, or gallops appreciated. ABDOMEN - Abdominal contour obese without pulsations or visible masses. BS hypoactive all four quadrants. No tenderness to palpation appreciated throughout. No guarding. No Rebound Tenderness. No palpable masses, hepatosplenomegaly, or ascites noted. EXTREMITIES - No clubbing or peripheral cyanosis. No pretibial edema present. +3/5 radial and dorsalis pedis pulses palpated throughout. +5/5 strength noted in UE/LE bilaterally. NEUROLOGIC - Cranial nerves II through XII grossly intact. PSYCH - A&Ox3 and cooperates fully with examiner. Pt is very pleasant and interacts well with examiner. Results & Data Results & Data ([facility]) Vital Signs (Past 12 Hours) Vital Signs Temp Pulse Pulse Resp BP BP Pulse Ox 03/18/22 00:53 37.4 C 99 H 17 140/113 H 99 03/18/22 00:17 108 H 21 125/78 98 03/18/22 00:13 82 96 03/17/22 21:00 108 H 23 100 03/17/22 19:00 100 03/17/22 19:00 100 03/17/22 18:42 36.4 C L 117 H 19 154/82 H 96 O2 Del Method 03/18/22 00:53 03/18/22 00:17 Room Air 03/18/22 00:13 Room Air 03/17/22 21:00 Room Air 03/17/22 19:00 03/17/22 19:00 03/17/22 18:42 Room Air Coding Level of Care Code Critical Care 1st 30-74 mins Diagnoses Admitted to intensive care unit Z78.9 DKA (diabetic ketoacidosis) E13.11 Diabetes mellitus complication detail: with coma Diabetes mellitus type: other specified (including WM) Controlled type 2 diabetes mellitus with neurologic complication, with long-term current use of insulin E11.49; Z79.4 Nausea R11.0 Metabolic acidosis E87.2 Gastric bypass status for obesity Z98.84 Time Spent (min) 32 (1) DKA (diabetic ketoacidosis) Diabetes mellitus complication detail: with coma Diabetes mellitus type: other specified (including WM) Qualified Code(s): E13.11 - Other specified diabetes mellitus with ketoacidosis with coma
[2022-03-18 02:39] LABS: Calcium 8.2 mg/dl (8.5-10.1); Creatinine Clr Calc Pharmacy 74.8 ml/min; Est GFR (Non-African American) 63.8 ml/min; Magnesium 1.3 mg/dl (1.7-2.4); Phosphorus 1.6 mg/dl (2.5-4.9); Potassium 3.1 mmol/L (3.5-5.1); Troponin I High Sensitivity 29.2 pg/ml (0-14)
[2022-03-18] MEDS: POTASSIUM CHLORIDE 40 MEQ in D5W AND 1/2NSS 1,000 ML IV SCH ×3 (03:46→12:15)
[2022-03-18] MEDS: POTASSIUM CHLORIDE / WTR 10 MEQ/100 ML PLCT IV SCH ×2 (04:49→05:54)
[2022-03-18] MEDS: MAGNESIUM SULFATE / D5W 1 GM/100 ML BAG IV SCH ×2 (04:50→06:43)
[2022-03-18 06:42] LABS: Basophils # (auto) 0.03 K/uL (0-0.2); Basophils % (auto) 0.2 %; Eosinophils # (auto) 0.01 K/uL (0-0.50); Eosinophils % (auto) 0.1 %; Hematocrit (blood only) 35.7 % (34.1-44.9); Hemoglobin 11.8 g/dl (12.0-16.0); Immature Granulocytes # (auto) 0.04 K/uL (0.00-0.02); Immature Granulocytes % (auto) 0.3 %; Lymphocytes % (auto) 14.9 %; Mean Corpuscular Hemoglobin 28.8 pg (25.0-34.0); Mean Corpuscular Hgb Conc 33.1 g/dL (32.0-36.0); Mean Corpuscular Volume 87.1 fL (80.0-100.0); Mean Platelet Volume 11.4 fL (9.4-12.3); Monocytes # (auto) 1.77 K/uL (0.24-0.82); Monocytes % (auto) 13.9 %; Neutrophils # (auto) 8.96 K/uL (1.4-6.5); Neutrophils % (auto) 70.6 %; Platelet Count 304 K/uL (130-400); RDW Coefficient of Variation 16.1 % (11.5-14.5); RDW Standard Deviation 51.3 fL (36.4-46.3); White Blood Count 12.71 K/ul (4.8-10.8)
[2022-03-18 07:00] LABS: Base Excess ABG -10.3 mEq/L (-9-1.8); HCO3 ABG 15 mmol/L (19-24); Oxygen Saturation ABG > 100.0 % (90-95); PCO2 ABG 30 mmHg (35-46); PO2 ABG 101 mmHg (80-95)
[2022-03-18 07:03] LABS: Allen Test Pos (Pos)
[2022-03-18 07:08] LABS: Pregnancy Test, Serum Positive (Negative)
[2022-03-18 07:16] LABS: Albumin Globulin Ratio 1.5 (0.9-2); Albumin Level 3.2 gm/dl (3.4-5.0); BUN Creatinine Ratio 15.1 (10-20); Bilirubin,Total 0.3 mg/dl (0.2-1.0); Calcium 7.6 mg/dl (8.5-10.1); Chol HDL Ratio 3.9 (0-5); Creatinine Clr Calc Pharmacy 102.4 ml/min; Est GFR (African American) 108.2 ml/min; Est GFR (Non-African American) 93.4 ml/min; Globulin 2.2 gm/dl (2.5-4.0); Magnesium 1.5 mg/dl (1.7-2.4); Phosphorus 1.3 mg/dl (2.5-4.9); Potassium 3.9 mmol/L (3.5-5.1); Total Protein 5.4 gm/dl (6.0-8.3)
[2022-03-18] MEDS ORDERED: MAGNESIUM SULFATE / D5W 1 GM/100 ML BAG IV ONE (07:18)
[2022-03-18] MEDS ORDERED: POTASSIUM PHOS 3 MMOL/1 ML INFUSION IV STA (07:22)
[2022-03-18 07:23] LABS: Procalcitonin < 0.05 ng/ml (0-0.5)
[2022-03-18] MEDS ORDERED: INSULIN ASPART PER UNIT SC SCH (07:30)
[2022-03-18] MEDS ORDERED: POTASSIUM PHOSPHATE 21 MMOL in SODIUM CHLORIDE 0.9% 500 ML IV ONE (07:30)
[2022-03-18] MEDS: INSULIN ASPART PER UNIT SC SCH ×4 (08:06→23:58)
[2022-03-18 08:11] LABS: Estimated Average Glucose 206 mg/dl; Hemoglobin A1C 8.8 % (4.5-5.6)
--- NOTE | 2022-03-18 08:24 | Hospitalist Progress Note ---
Date of Service March 18, 2022 Assessment & Plan (1) DKA (diabetic ketoacidosis): (2) Controlled type 2 diabetes mellitus with neurologic complication, with long- term current use of insulin: (3) Nausea: (4) Hypothyroidism: Plan 56yo female with IDDM2, HTN, HLD, hypothyroidism, narcolepsy, DEO, MDD, history of DKA (02/2022 at [facility]), and a history of gastric bypass surgery (12/2021 at [facility]) presents in DKA. Update: Gap is closed. able to tolerate PO intake. MS improved. Patient remains in the ICU: the plan is to slowly take her off the drip--> basal dose insulin --> SSI DKA On admission, VBG pH 7.23, anion gap 26, potassium 3.3, bicarb 11, glucose 408 Insulin gtt per protocol Received 3L NSS in ED D5 08/15 NSS + 40 mEq KCl @ 250mL/hr BSG q1h ordered BMP, magnesium, phosphorous, and VBG q4h Once anion gap closes, switch from insulin gtt to sq Diabetic education consult placed, recommendations appreciated HbA1c 7.6% (11/15/2021), repeat pending Given patient's AG of 26 and bicarb of 11, will admit to ICU; case discussed with overnight intensivitst Stat ABG ordered positive B-hCG -Patient is post menopause and it 56 years old. -Pelvic US will be done to further examine. Elevated troponin On admission, hsTroponin elevated to 15.5, repeat value pending EKG: NSR, no overt sign of ischemic change Patient without CP at this time HTN: BP elevated to 150s/80s on admission, holding home meds while NPO HLD: holding home meds while NPO Hypothyroidism: holding home meds while NPO DEO, MDD: holding home meds while NPO Narcolepsy: holding home meds while NPO FEN: NPO, IVF as above Code status: full code DVT ppx: SCDs Consults: cert pharmacy tech Dispo: ICU Thank you for allowing me to participate in the care of your patient. -Dr. Pipe Haney PGY1 Admission and Anticipated Discharge Date Admission Date: March 17, 2022 Supervising Physician Co-Signing Physician Notes I personally examined the patient and verified all garza points of history and exam, discussed case, and agree with decision making with Dr Haney. Improving. ICU notes safe for transfer out of unit. Chart and labs reviewed. Patient sleeping comfortably whenever I went to see her. Given that she had already been seen by ICU PA, resident, and attending, as well as hospitalist resident thus far today, allowed patient to rest. Vitals noted, in general she is resting comfortably no distress. Breathing unlabored no accessory muscle use good effort. Skin shows no rashes no pallor or icterus. DKAimproving. Continue current care as above. Safe for transfer out of ICU. Subjective Patient was seen beside this morning. She is feeling better and her MS has improved. She has no complaints or issues today. Results & Data Results & Data ([facility]) Vital Signs (Past 12 Hours) Vital Signs Temp Pulse Pulse Resp BP BP Pulse Ox 03/18/22 07:28 03/18/22 06:00 97 H 20 150/88 H 03/18/22 05:30 95 H 13 100 03/18/22 05:00 92 H 18 143/82 H 97 03/18/22 04:30 86 14 98 03/18/22 04:00 90 20 148/91 H 100 03/18/22 03:30 90 25 H 92 03/18/22 03:00 89 23 118/67 94 03/18/22 02:30 92 H 25 H 93 03/18/22 02:00 88 16 150/85 H 100 03/18/22 01:30 85 22 99 03/18/22 01:00 104 H 19 147/117 H 100 03/18/22 00:49 03/18/22 00:49 101 H 03/18/22 00:53 37.4 C 99 H 17 140/113 H 99 03/18/22 00:17 108 H 21 125/78 98 03/18/22 00:13 82 96 03/17/22 21:00 108 H 23 100 Pulse Ox O2 Del Method O2 Del Method 03/18/22 07:28 Room Air 03/18/22 06:00 03/18/22 05:30 03/18/22 05:00 03/18/22 04:30 03/18/22 04:00 03/18/22 03:30 03/18/22 03:00 03/18/22 02:30 03/18/22 02:00 03/18/22 01:30 03/18/22 01:00 03/18/22 00:49 99 Room Air 03/18/22 00:49 03/18/22 00:53 03/18/22 00:17 Room Air 03/18/22 00:13 Room Air 03/17/22 21:00 Room Air Resident Activity Tracking Resident Involvement: Resident Care Provided Care Provided: Adult Hospital Medicine (1) DKA (diabetic ketoacidosis) Diabetes mellitus complication detail: with coma Diabetes mellitus type: other specified (including WM) Qualified Code(s): E13.11 - Other specified diabetes mellitus with ketoacidosis with coma
--- NOTE | 2022-03-18 09:36 | Communication Note ---
Date of Service: March 18, 2022 Mental status imrproved. Able to tolerate PO at this time. Gap is closing appropriately. Start transition off insulin infusion with basal insulin. Follow-up with PCP regarding elevated beta hCG. There is a remote possibility this could represent some form of however I am more concerned that this is evidence of occult malignancy. Will order pelvic ultrasound for further elucidation of cause of elevated beta-hCG. stable for downgrade Coding Level of Care Code None
[2022-03-18] MEDS ORDERED: LANTUS PER UNIT CHARGE SQ ONE (09:45)
[2022-03-18 09:55] LABS: BUN Creatinine Ratio 12.8 (10-20); Calcium 7.8 mg/dl (8.5-10.1); Creatinine Clr Calc Pharmacy 95.9 ml/min; Est GFR (African American) 99.9 ml/min; Est GFR (Non-African American) 86.2 ml/min; Potassium 3.7 mmol/L (3.5-5.1)
[2022-03-18 09:58] LABS: Magnesium 1.7 mg/dl (1.7-2.4)
--- NOTE | 2022-03-18 12:45 | Pharmacy Report ---
Pharmacy Glycemic Short Note 2 - Date of Service March 18, 2022 - Glycemic Short BSG Results (Last 24 hours): 03/17/22 03/17/22 03/17/22 18:45 18:47 18:48 Glucose POC Glucose 384 H* 469 H* 391 H* 03/17/22 03/17/22 03/17/22 18:59 21:53 22:27 Glucose 408 H* POC Glucose 288 H 292 H 03/17/22 03/17/22 03/18/22 22:55 23:49 00:36 Glucose 314 H* POC Glucose 288 H 307 H* 03/18/22 03/18/22 03/18/22 01:40 01:46 02:43 Glucose 221 H POC Glucose 232 H 191 H 03/18/22 03/18/22 03/18/22 03:41 04:44 05:03 Glucose POC Glucose 153 H 119 H 127 H 03/18/22 03/18/22 03/18/22 06:11 06:25 07:02 Glucose 162 H POC Glucose 137 H 176 H 03/18/22 03/18/22 03/18/22 08:03 09:19 09:25 Glucose 229 H POC Glucose 207 H 239 H 03/18/22 03/18/22 03/18/22 10:04 11:06 12:18 Glucose POC Glucose 229 H 228 H 249 H OUTPATIENT ANTIDIABETIC REGIMEN: * Metformin 1 gm BID; Apidra w/ 3 pm meal CR 1:5 CF 32 for BSG >130 * A1c 8.8% 03/18/22 ASSESSMENT: * Patient admitted with DKA, initial pH 7.28, bicarbonate 11, anion gap 21 * Gap closed this morning, pH 7.30 bicarb improved- will begin to transition off of insulin infusion * Lantus dose 32 units x1, insulin infusion to be d/c when BSGs in goal range x 1, and drip running at rate < 2 units/hr * Continuing on current dextrose containing fluids as patient is still NPO, fluids should d/c with start of diet. PLAN FOR INPATIENT GLYCEMIC CONTROL: * Hold outpatient oral diabetes medications * Basal insulin * Lantus 32 units SQ x1 * Insulin Infusion * Goal Range: Low 120 mg/dL - High 200 mg/dL * If transitioned off would begin novolog at weight based stress of 2 * Correction Factor: 25 mg/dL/unit * Nutritional / Prandial insulin per carb ratio of 1 unit per 8 grams CHO consumed
[2022-03-18 13:16] LABS: BUN Creatinine Ratio 10.5 (10-20); Calcium 7.4 mg/dl (8.5-10.1); Creatinine Clr Calc Pharmacy 98.4 ml/min; Est GFR (African American) 103.1 ml/min; Est GFR (Non-African American) 88.9 ml/min; Potassium 3.7 mmol/L (3.5-5.1)
[2022-03-18 13:24] LABS: Magnesium 1.8 mg/dl (1.7-2.4); Phosphorus 1.3 mg/dl (2.5-4.9)
--- NOTE | 2022-03-18 14:44 | Ultrasound Report ---
PELVIC ULTRASOUND CLINICAL HISTORY: elevated B-HCG COMPARISON STUDY: CT of the abdomen and pelvis March 17, 2022. TECHNIQUE: Transabdominal sonography of the pelvis was performed. FINDINGS: Uterus measures 5.2 x 1.6 x 2.7 cm. Endometrium measures 3 mm in thickness. Uterus is subop timally assessed given lack of transvaginal imaging. No intrauterine gestational sac is identified. T he right ovary was not visualized. The left ovary is unremarkable, measuring 2.2 x 1.1 x 1.6 cm. No a dnexal mass is identified. IMPRESSION: 1. No intrauterine gestational sac or adnexal mass identified. 2. Nonvisualization of the right ovary. ACT 112: Negative or not required by law. Electronically signed by: Ming Watson M.D. 03/18/2022 2:42 PM
--- NOTE | 2022-03-18 15:16 | Electrocardiogram Report ---
Test Reason : Blood Pressure : / mmHG Vent. Rate : 095 BPM Atrial Rate : 095 BPM P-R Int : 114 ms QRS Dur : 078 ms QT Int : 362 ms P-R-T Axes : 062 -02 039 degrees QTc Int : 454 ms Sinus rhythm with marked sinus arrhythmia Otherwise normal ECG When compared with ECG of 19-APR-2018 10:42, No significant change was found Confirmed by Mert Walker ([id number]) on 03/18/2022 3:15:32 PM Referred By: REFERRED SELF Confirmed By:Travon Walker
--- NOTE | 2022-03-18 18:50 | Billing Data ---
Date of Service March 18, 2022 Coding Level of Care Code 51524 Subseq Hosp Care Lvl 2
--- NOTE | 2022-03-18 21:14 | Billing Data ---
Date of Service March 18, 2022 Coding Level of Care Code Critical Care 09 12- mins
[2022-03-18] MEDS: GABAPENTIN 300 MG CAP PO SCH (23:58)
[2022-03-19] MEDS: GABAPENTIN 300 MG CAP PO SCH (04:23)
[2022-03-19] MEDS ORDERED: LEVOTHYROXINE SODIUM 100 MCG TABLET PO SCH (06:30)
--- NOTE | 2022-03-19 07:00 | Hospitalist Progress Note ---
Date of Service March 19, 2022 Assessment & Plan (1) DKA (diabetic ketoacidosis): Plan: On admission, VBG pH 7.23, anion gap 26, potassium 3.3, bicarb 11, glucose 408 Insulin gtt per protocol, anion gap closed and insulin gtt was switch to sq Diabetic education consult placed, recommendations appreciated HbA1c 7.6% (11/15/2021), repeat 8.8 Pt was transferred to floor from ICU yesterday. Continue SSI- BSG goals Low 120 mg/dL, High 150 mg/dL, Correction Factor: 25 mg/dL/unit, Carbohydrate ratio = 8 g/unit BSGs ACHS if eating, q6h if npo (2) Controlled type 2 diabetes mellitus with neurologic complication, with long- term current use of insulin: Plan: Home regimen is insulin- glulisine Inject up to 45 units a day and 1000mg metformin BID (3) Nausea: Plan: Zofran prn (4) Hypothyroidism: Plan: Continue home dose of levothyroxine (5) Depression with anxiety: Plan: Continue home medications- bupropion, sertraline (6) Hypertension: Plan: Blood pressure elevated this morning 154/88 Consider restarting home medications- lisinopril (7) Dyslipidemia: Plan: Continue home mediations- atorvastatin (8) Elevated troponin: Plan: On admission, hsTroponin elevated to 15.5, repeat value 29.2 EKG: NSR, no overt sign of ischemic change Patient without CP at this time (9) Narcolepsy: Plan: Continue home medication- modafinil (10) Diabetic peripheral neuropathy: Plan: Continue home medication- gabapentin (11) Positive blood test: Plan: positive B-hCG -Patient is post menopause and it 56 years old. -Pelvic US unremarkable Admission and Anticipated Discharge Date Admission Date: March 17, 2022 Subjective 56yo female with IDDM2, HTN, HLD, hypothyroidism, narcolepsy, DEO, MDD, history of DKA (02/2022 at [facility]), and a history of gastric bypass surgery (12/2021 at [facility]) presents in DKA. Patient was seen beside this morning, she is still having nasua which has been present for her entire stay. Denies abdominal pain, vomiting. Has been able to ambulate some. Physical Exam Physical Exam: Constitutional: no acute distress HEENT: NCAT, no conjunctival injection, no scleral icterus CV: regular rhythm, no murmur appreciated, extremities well-perfused, no LE edema Resp: CTABL, no wheezes/rales/rhonchi appreciated, no increased work of breathing GI: soft, nondistended, nontender, BS normoactive MSK: no gross deformities appreciated Skin: warm, dry, no rash appreciated Neuro: AAOx3 Results & Data Results & Data ([facility]) Vital Signs (Past 12 Hours) Vital Signs Temp Pulse Pulse Resp BP BP Pulse Ox 03/19/22 03:09 37.2 C 93 H 18 147/93 H 96 03/18/22 23:14 36.9 C 86 20 173/98 H 98 03/18/22 19:01 83 17 165/101 H 98 O2 Del Method 03/19/22 03:09 Room Air 03/18/22 23:14 Room Air 03/18/22 19:01 Laboratory Results 03/19/22 03/19/22 03/19/22 Range/Units 07:59 07:59 07:59 WBC 10.42 (4.8-10.8) K/ul RBC 4.55 (3.93-5.22) M/uL Hgb 13.0 (12.0-16.0) g/dl Hct 39.5 (34.1-44.9) % MCV 86.8 (80.0-100.0) fL MCH 28.6 (25.0-34.0) pg MCHC 32.9 (32.0-36.0) g/dL RDW Std Deviation 52.6 H (36.4-46.3) fL RDW Coeff of Any 16.8 H (11.5-14.5) % Plt Count 310 (130-400) K/uL MPV 10.6 (9.4-12.3) fL Immature Gran % (Auto) 0.5 % Neut % (Auto) 70.6 % Lymph % (Auto) 20.2 % Kings % (Auto) 8.4 % Eos % (Auto) 0.1 % Baso % (Auto) 0.2 % Neut # (Auto) 7.36 H (1.4-6.5) K/uL Lymph # (Auto) 2.10 (1.2-3.4) K/uL Kings # (Auto) 0.88 H (0.24-0.82) K/uL Eos # (Auto) 0.01 (0-0.50) K/uL Baso # (Auto) 0.02 (0-0.2) K/uL Immature Gran # (Auto) 0.05 H (0.00-0.02) K/uL VBG pH 7.38 (7.36-7.41) Sodium 139 (136-145) mmol/L Potassium 3.6 (3.5-5.1) mmol/L Chloride 109 H (98-107) mmol/L Carbon Dioxide 19 L (21-32) mmol/L Anion Gap 11 (3-11) BUN 6 (6-23) mg/dl Creatinine 0.69 (0.6-1.2) mg/dl Est Cr Clr Drug Dosing 109.6 ml/min Est GFR ( Amer) 114.4 ml/min Est GFR (Non-Af Amer) 98.7 ml/min BUN/Creatinine Ratio 8.7 L (10-20) Glucose 220 H (70-99(Fasting)) mg/dl POC Glucose (70-99) mg/dl Calcium 7.7 L (8.5-10.1) mg/dl Phosphorus 2.1 L (2.5-4.9) mg/dl Magnesium 1.6 L (1.7-2.4) mg/dl Total Bilirubin 0.4 (0.2-1.0) mg/dl AST 49 H (13-39) U/L ALT 30 (7-52) U/L Alkaline Phosphatase 70 (34-104) U/L Total Protein 5.6 L (6.0-8.3) gm/dl Albumin 3.2 L (3.4-5.0) gm/dl Globulin 2.4 L (2.5-4.0) gm/dl Albumin/Globulin Ratio 1.3 (0.9-2) 03/19/22 03/18/22 03/18/22 Range/Units 07:22 23:57 19:57 WBC (4.8-10.8) K/ul RBC (3.93-5.22) M/uL Hgb (12.0-16.0) g/dl Hct (34.1-44.9) % MCV (80.0-100.0) fL MCH (25.0-34.0) pg MCHC (32.0-36.0) g/dL RDW Std Deviation (36.4-46.3) fL RDW Coeff of Any (11.5-14.5) % Plt Count (130-400) K/uL MPV (9.4-12.3) fL Immature Gran % (Auto) % Neut % (Auto) % Lymph % (Auto) % Kings % (Auto) % Eos % (Auto) % Baso % (Auto) % Neut # (Auto) (1.4-6.5) K/uL Lymph # (Auto) (1.2-3.4) K/uL Kings # (Auto) (0.24-0.82) K/uL Eos # (Auto) (0-0.50) K/uL Baso # (Auto) (0-0.2) K/uL Immature Gran # (Auto) (0.00-0.02) K/uL VBG pH (7.36-7.41) Sodium (136-145) mmol/L Potassium (3.5-5.1) mmol/L Chloride (98-107) mmol/L Carbon Dioxide (21-32) mmol/L Anion Gap (3-11) BUN (6-23) mg/dl Creatinine (0.6-1.2) mg/dl Est Cr Clr Drug Dosing ml/min Est GFR ( Amer) ml/min Est GFR (Non-Af Amer) ml/min BUN/Creatinine Ratio (10-20) Glucose (70-99(Fasting)) mg/dl POC Glucose 204 H 192 H 152 H (70-99) mg/dl Calcium (8.5-10.1) mg/dl Phosphorus (2.5-4.9) mg/dl Magnesium (1.7-2.4) mg/dl Total Bilirubin (0.2-1.0) mg/dl AST (13-39) U/L ALT (7-52) U/L Alkaline Phosphatase (34-104) U/L Total Protein (6.0-8.3) gm/dl Albumin (3.4-5.0) gm/dl Globulin (2.5-4.0) gm/dl Albumin/Globulin Ratio (0.9-2) 03/18/22 03/18/22 03/18/22 Range/Units 17:49 16:17 14:57 WBC (4.8-10.8) K/ul RBC (3.93-5.22) M/uL Hgb (12.0-16.0) g/dl Hct (34.1-44.9) % MCV (80.0-100.0) fL MCH (25.0-34.0) pg MCHC (32.0-36.0) g/dL RDW Std Deviation (36.4-46.3) fL RDW Coeff of Any (11.5-14.5) % Plt Count (130-400) K/uL MPV (9.4-12.3) fL Immature Gran % (Auto) % Neut % (Auto) % Lymph % (Auto) % Kings % (Auto) % Eos % (Auto) % Baso % (Auto) % Neut # (Auto) (1.4-6.5) K/uL Lymph # (Auto) (1.2-3.4) K/uL Kings # (Auto) (0.24-0.82) K/uL Eos # (Auto) (0-0.50) K/uL Baso # (Auto) (0-0.2) K/uL Immature Gran # (Auto) (0.00-0.02) K/uL VBG pH (7.36-7.41) Sodium (136-145) mmol/L Potassium (3.5-5.1) mmol/L Chloride (98-107) mmol/L Carbon Dioxide (21-32) mmol/L Anion Gap (3-11) BUN (6-23) mg/dl Creatinine (0.6-1.2) mg/dl Est Cr Clr Drug Dosing ml/min Est GFR ( Amer) ml/min Est GFR (Non-Af Amer) ml/min BUN/Creatinine Ratio (10-20) Glucose (70-99(Fasting)) mg/dl POC Glucose 147 H 156 H 212 H (70-99) mg/dl Calcium (8.5-10.1) mg/dl Phosphorus (2.5-4.9) mg/dl Magnesium (1.7-2.4) mg/dl Total Bilirubin (0.2-1.0) mg/dl AST (13-39) U/L ALT (7-52) U/L Alkaline Phosphatase (34-104) U/L Total Protein (6.0-8.3) gm/dl Albumin (3.4-5.0) gm/dl Globulin (2.5-4.0) gm/dl Albumin/Globulin Ratio (0.9-2) 03/18/22 03/18/22 03/18/22 Range/Units 14:04 13:31 12:46 WBC (4.8-10.8) K/ul RBC (3.93-5.22) M/uL Hgb (12.0-16.0) g/dl Hct (34.1-44.9) % MCV (80.0-100.0) fL MCH (25.0-34.0) pg MCHC (32.0-36.0) g/dL RDW Std Deviation (36.4-46.3) fL RDW Coeff of Any (11.5-14.5) % Plt Count (130-400) K/uL MPV (9.4-12.3) fL Immature Gran % (Auto) % Neut % (Auto) % Lymph % (Auto) % Kings % (Auto) % Eos % (Auto) % Baso % (Auto) % Neut # (Auto) (1.4-6.5) K/uL Lymph # (Auto) (1.2-3.4) K/uL Kings # (Auto) (0.24-0.82) K/uL Eos # (Auto) (0-0.50) K/uL Baso # (Auto) (0-0.2) K/uL Immature Gran # (Auto) (0.00-0.02) K/uL VBG pH 7.35 L (7.36-7.41) Sodium (136-145) mmol/L Potassium (3.5-5.1) mmol/L Chloride (98-107) mmol/L Carbon Dioxide (21-32) mmol/L Anion Gap (3-11) BUN (6-23) mg/dl Creatinine (0.6-1.2) mg/dl Est Cr Clr Drug Dosing ml/min Est GFR ( Amer) ml/min Est GFR (Non-Af Amer) ml/min BUN/Creatinine Ratio (10-20) Glucose (70-99(Fasting)) mg/dl POC Glucose 210 H 227 H (70-99) mg/dl Calcium (8.5-10.1) mg/dl Phosphorus (2.5-4.9) mg/dl Magnesium (1.7-2.4) mg/dl Total Bilirubin (0.2-1.0) mg/dl AST (13-39) U/L ALT (7-52) U/L Alkaline Phosphatase (34-104) U/L Total Protein (6.0-8.3) gm/dl Albumin (3.4-5.0) gm/dl Globulin (2.5-4.0) gm/dl Albumin/Globulin Ratio (0.9-2) 03/18/22 03/18/22 03/18/22 Range/Units 12:46 12:18 11:06 WBC (4.8-10.8) K/ul RBC (3.93-5.22) M/uL Hgb (12.0-16.0) g/dl Hct (34.1-44.9) % MCV (80.0-100.0) fL MCH (25.0-34.0) pg MCHC (32.0-36.0) g/dL RDW Std Deviation (36.4-46.3) fL RDW Coeff of Any (11.5-14.5) % Plt Count (130-400) K/uL MPV (9.4-12.3) fL Immature Gran % (Auto) % Neut % (Auto) % Lymph % (Auto) % Kings % (Auto) % Eos % (Auto) % Baso % (Auto) % Neut # (Auto) (1.4-6.5) K/uL Lymph # (Auto) (1.2-3.4) K/uL Kings # (Auto) (0.24-0.82) K/uL Eos # (Auto) (0-0.50) K/uL Baso # (Auto) (0-0.2) K/uL Immature Gran # (Auto) (0.00-0.02) K/uL VBG pH (7.36-7.41) Sodium 139 (136-145) mmol/L Potassium 3.7 (3.5-5.1) mmol/L Chloride 114 H (98-107) mmol/L Carbon Dioxide 16 L (21-32) mmol/L Anion Gap 9 (3-11) BUN 8 (6-23) mg/dl Creatinine 0.76 (0.6-1.2) mg/dl Est Cr Clr Drug Dosing 98.4 ml/min Est GFR ( Amer) 103.1 ml/min Est GFR (Non-Af Amer) 88.9 ml/min BUN/Creatinine Ratio 10.5 (10-20) Glucose 232 H (70-99(Fasting)) mg/dl POC Glucose 249 H 228 H (70-99) mg/dl Calcium 7.4 L (8.5-10.1) mg/dl Phosphorus 1.3 L* (2.5-4.9) mg/dl Magnesium 1.8 (1.7-2.4) mg/dl Total Bilirubin (0.2-1.0) mg/dl AST (13-39) U/L ALT (7-52) U/L Alkaline Phosphatase (34-104) U/L Total Protein (6.0-8.3) gm/dl Albumin (3.4-5.0) gm/dl Globulin (2.5-4.0) gm/dl Albumin/Globulin Ratio (0.9-2) 03/18/22 03/18/22 03/18/22 Range/Units 10:04 09:25 09:25 WBC (4.8-10.8) K/ul RBC (3.93-5.22) M/uL Hgb (12.0-16.0) g/dl Hct (34.1-44.9) % MCV (80.0-100.0) fL MCH (25.0-34.0) pg MCHC (32.0-36.0) g/dL RDW Std Deviation (36.4-46.3) fL RDW Coeff of Any (11.5-14.5) % Plt Count (130-400) K/uL MPV (9.4-12.3) fL Immature Gran % (Auto) % Neut % (Auto) % Lymph % (Auto) % Kings % (Auto) % Eos % (Auto) % Baso % (Auto) % Neut # (Auto) (1.4-6.5) K/uL Lymph # (Auto) (1.2-3.4) K/uL Kings # (Auto) (0.24-0.82) K/uL Eos # (Auto) (0-0.50) K/uL Baso # (Auto) (0-0.2) K/uL Immature Gran # (Auto) (0.00-0.02) K/uL VBG pH 7.26 L (7.36-7.41) Sodium 142 (136-145) mmol/L Potassium 3.7 (3.5-5.1) mmol/L Chloride 113 H (98-107) mmol/L Carbon Dioxide 17 L (21-32) mmol/L Anion Gap 12 H (3-11) BUN 10 (6-23) mg/dl Creatinine 0.78 (0.6-1.2) mg/dl Est Cr Clr Drug Dosing 95.9 ml/min Est GFR ( Amer) 99.9 ml/min Est GFR (Non-Af Amer) 86.2 ml/min BUN/Creatinine Ratio 12.8 (10-20) Glucose 229 H (70-99(Fasting)) mg/dl POC Glucose 229 H (70-99) mg/dl Calcium 7.8 L (8.5-10.1) mg/dl Phosphorus 1.0 L* (2.5-4.9) mg/dl Magnesium 1.7 (1.7-2.4) mg/dl Total Bilirubin (0.2-1.0) mg/dl AST (13-39) U/L ALT (7-52) U/L Alkaline Phosphatase (34-104) U/L Total Protein (6.0-8.3) gm/dl Albumin (3.4-5.0) gm/dl Globulin (2.5-4.0) gm/dl Albumin/Globulin Ratio (0.9-2) (1) DKA (diabetic ketoacidosis) Diabetes mellitus complication detail: with coma Diabetes mellitus type: other specified (including WM) Qualified Code(s): E13.11 - Other specified diabetes mellitus with ketoacidosis with coma
[2022-03-19 08:07] LABS: Basophils # (auto) 0.02 K/uL (0-0.2); Basophils % (auto) 0.2 %; Eosinophils # (auto) 0.01 K/uL (0-0.50); Eosinophils % (auto) 0.1 %; Hematocrit (blood only) 39.5 % (34.1-44.9); Immature Granulocytes # (auto) 0.05 K/uL (0.00-0.02); Immature Granulocytes % (auto) 0.5 %; Lymphocytes % (auto) 20.2 %; Mean Corpuscular Hemoglobin 28.6 pg (25.0-34.0); Mean Corpuscular Hgb Conc 32.9 g/dL (32.0-36.0); Mean Corpuscular Volume 86.8 fL (80.0-100.0); Mean Platelet Volume 10.6 fL (9.4-12.3); Monocytes # (auto) 0.88 K/uL (0.24-0.82); Monocytes % (auto) 8.4 %; Neutrophils # (auto) 7.36 K/uL (1.4-6.5); Neutrophils % (auto) 70.6 %; Platelet Count 310 K/uL (130-400); RDW Coefficient of Variation 16.8 % (11.5-14.5); RDW Standard Deviation 52.6 fL (36.4-46.3); Red Blood Count 4.55 M/uL (3.93-5.22); White Blood Count 10.42 K/ul (4.8-10.8)
[2022-03-19 08:26] LABS: Albumin Globulin Ratio 1.3 (0.9-2); Albumin Level 3.2 gm/dl (3.4-5.0); BUN Creatinine Ratio 8.7 (10-20); Bilirubin,Total 0.4 mg/dl (0.2-1.0); Calcium 7.7 mg/dl (8.5-10.1); Creatinine Clr Calc Pharmacy 109.6 ml/min; Est GFR (African American) 114.4 ml/min; Est GFR (Non-African American) 98.7 ml/min; Globulin 2.4 gm/dl (2.5-4.0); Magnesium 1.6 mg/dl (1.7-2.4); Phosphorus 2.1 mg/dl (2.5-4.9); Potassium 3.6 mmol/L (3.5-5.1); Total Protein 5.6 gm/dl (6.0-8.3)
[2022-03-19] MEDS: INSULIN ASPART PER UNIT SC SCH ×2 (08:43→12:56)
[2022-03-19] MEDS ORDERED: ATORVASTATIN 10 MG TAB PO SCH (09:00)
[2022-03-19] MEDS ORDERED: LANTUS PER UNIT CHARGE SQ SCH (09:00)
[2022-03-19] MEDS ORDERED: modafiniL 100 MG TAB PO SCH (09:00)
[2022-03-19] MEDS ORDERED: CHOLECALCIFEROL 1,000 UNITS 25 MCG TAB PO SCH (09:00)
[2022-03-19] MEDS ORDERED: CALCIUM 600MG + VIT D 400 IU TAB PO SCH (09:00)
[2022-03-19] MEDS ORDERED: buPROPion SR 150 MG TABCR PO SCH (09:00)
[2022-03-19] MEDS ORDERED: CYANOCOBALAMIN (B-12) 500 MCG TABLET PO SCH (09:00)
[2022-03-19] MEDS ORDERED: CEROVITE ADV FORMULA TAB PO SCH (09:00)
[2022-03-19] MEDS ORDERED: SERTRALINE HCL 50 MG TABLET PO SCH (09:00)
--- NOTE | 2022-03-19 12:50 | Discharge Summary ---
Date of Service March 19, 2022 Admission HPI Per Admitting Provider 56yo female with IDDM2, HTN, HLD, hypothyroidism, narcolepsy, DEO, MDD, history of DKA (02/2022 at [facility]), and a history of gastric bypass surgery (12/2021 at [facility]) presents with a three-day history of worsening nausea. Patient notes nausea since her surgery (December 2021 at [facility]) but this has been worsening recently. Also notes upper abdominal pain and generalized weakness. Patient began feeling unwell while at work today and presented to the ED. Of note, patient has a history of DKA one month ago at [facility]. Patient notes she has had a low appetite over the past few days but has still been eating meals and covering with insulin. Patient had 7u short-acting insulin this morning with breakfast. Patient denies fever, chills, headache, vision changes, CP, palpitations, SOB, edema, abdominal pain, vomiting, dysuria, hematochezia, melena, lightheadedness, dizziness, numbness, tingling, or other symptoms. Denies recent illness and recent travel. Upon arrival, vitals were notable for elevated BP to 150s/80s and tachycardia to the mid-110s. No tachypnea, patient afebrile, spO2 adequate on room air. Initial labs were notable for mild leukocytosis (14.0), thrombocytosis (464), mild hypokalemia (3.3), slightly elevated creatinine (1.21, baseline ~0.8), hyperglycemia (408), elevated lactate (2.2), anion gap (26), slightly elevated hsTroponin (15.5). LFTs and lipase not elevated. VBG was notable for metabolic acidosis (pH 7.23). In the ED, patient was started on an insulin drip, given NSS 1L bolus (x3), and KCl 10mEq IV (x1). EKG: NSR, no sign of ischemic change. CXR was negative. CT abdomen/pelvis was notable for cholelithiasis without gallbladder wall thickening, and craig-en-Y gastric bypass; no bowel wall thickening and no obstruction noted. Surrogate decision-maker in case of an emergency: cary Rodriguez (cell: [phone]) Admission Exam Per Admitting Provider Constitutional: tired-appearing, somnolent, no acute distress HEENT: NCAT, no conjunctival injection, no scleral icterus CV: regular rhythm, no murmur appreciated, extremities well-perfused, no LE edema Resp: CTABL, no wheezes/rales/rhonchi appreciated, no increased work of breathing GI: soft, nondistended, nontender, BS normoactive MSK: no gross deformities appreciated Skin: warm, dry, no rash appreciated Neuro: somnolent but arousable, oriented, answers questions appropriately, no focal neurologic deficit appreciated Principal Diagnosis DKA Discharge Exam Constitutional: no acute distress HEENT: NCAT, no conjunctival injection, no scleral icterus CV: regular rhythm, no murmur appreciated, extremities well-perfused, no LE edema Resp: CTABL, no wheezes/rales/rhonchi appreciated, no increased work of breathing GI: soft, nondistended, nontender, BS normoactive MSK: no gross deformities appreciated Skin: warm, dry, no rash appreciated Neuro: AAOx3 Discharge Data Allergies Allergy/AdvReac Type Severity Reaction Status Date / Time liraglutide [From Victoza] Allergy Hives Verified 03/17/22 22:45 Consultations 03/17/22 21:17 ED Decision to Admit Stat 03/18/22 00:49 Consult Torpedoman'S Mate Routine Ordered Studies 03/17/22 18:59 CT abd pelvis IV con only Stat ABDOMEN AND PELVIS CT WITH IV CONTRAST CT DOSE: 757.57 mGy.cm HISTORY: vomiting TECHNIQUE: Multiaxial CT images of the abdomen and pelvis were performed following the use of intravenous contrast. A dose lowering technique was utiliz ed adhering to the principles of ALARA. COMPARISON STUDY: Abdomen and pelvis CT 04/19/2018. FINDINGS: The lung bases are essentially clear. No pneumoperitoneum. No pneumatosis. No fractures within the visualized osseous structures. Focal soft tissue density within the left anterior abdominal wall likely represents an area of scarring from a prior port site. Small areas of focal fat within the left hepatic lobe adjacent to the falciform ligament. There are few small gallstones. No gallbladder wall thickening. The main portal vein is patent. The pancreas, adrenal glands, and kidneys are unremarkable. No hydronephrosis. Stable subtle 8 mm hypodense lesion within the splenic dome. This is likely benign. Normal caliber abdominal aorta. No retroperitoneal lymphadenopathy. The bladder, uterus, bilateral adnexa are unremarkable. No pelvic free fluid or pelvic lymphadenopathy. No bowel wall thickening or obstruction. A few colonic diverticulosis. No evidence for acute diverticulitis. Normal appendix. IMPRESSION: 1. No bowel wall thickening or obstruction. 2. Normal appendix. 3. Craig-en-Y gastric bypass. 4. Cholelithiasis. No gallbladder wall thickening. 03/18/22 09:35 US pelvic complete Routine CLINICAL HISTORY: elevated B-HCG COMPARISON STUDY: CT of the abdomen and pelvis March 17, 2022. TECHNIQUE: Transabdominal sonography of the pelvis was performed. FINDINGS: Uterus measures 5.2 x 1.6 x 2.7 cm. Endometrium measures 3 mm in thickness. Uterus is suboptimally assessed given lack of transvaginal imaging. No intrauterine gestational sac is identified. The right ovary was not visualized. The left ovary is unremarkable, measuring 2.2 x 1.1 x 1.6 cm. No adnexal mass is identified. IMPRESSION: 1. No intrauterine gestational sac or adnexal mass identified. 2. Nonvisualization of the right ovary. 03/19/22 03/19/22 03/19/22 Range/Units 11:25 07:59 07:59 WBC (4.8-10.8) K/ul RBC (3.93-5.22) M/uL Hgb (12.0-16.0) g/dl Hct (34.1-44.9) % MCV (80.0-100.0) fL MCH (25.0-34.0) pg MCHC (32.0-36.0) g/dL RDW Std Deviation (36.4-46.3) fL RDW Coeff of Any (11.5-14.5) % Plt Count (130-400) K/uL MPV (9.4-12.3) fL Immature Gran % (Auto) % Neut % (Auto) % Lymph % (Auto) % Pike % (Auto) % Eos % (Auto) % Baso % (Auto) % Neut # (Auto) (1.4-6.5) K/uL Lymph # (Auto) (1.2-3.4) K/uL Pike # (Auto) (0.24-0.82) K/uL Eos # (Auto) (0-0.50) K/uL Baso # (Auto) (0-0.2) K/uL Immature Gran # (Auto) (0.00-0.02) K/uL VBG pH 7.38 (7.36-7.41) Sodium 139 (136-145) mmol/L Potassium 3.6 (3.5-5.1) mmol/L Chloride 109 H (98-107) mmol/L Carbon Dioxide 19 L (21-32) mmol/L Anion Gap 11 (3-11) BUN 6 (6-23) mg/dl Creatinine 0.69 (0.6-1.2) mg/dl Est Cr Clr Drug Dosing 109.6 ml/min Est GFR ( Amer) 114.4 ml/min Est GFR (Non-Af Amer) 98.7 ml/min BUN/Creatinine Ratio 8.7 L (10-20) Glucose 220 H (70-99(Fasting)) mg/dl POC Glucose 183 H (70-99) mg/dl Calcium 7.7 L (8.5-10.1) mg/dl Phosphorus 2.1 L (2.5-4.9) mg/dl Magnesium 1.6 L (1.7-2.4) mg/dl Total Bilirubin 0.4 (0.2-1.0) mg/dl AST 49 H (13-39) U/L ALT 30 (7-52) U/L Alkaline Phosphatase 70 (34-104) U/L Total Protein 5.6 L (6.0-8.3) gm/dl Albumin 3.2 L (3.4-5.0) gm/dl Globulin 2.4 L (2.5-4.0) gm/dl Albumin/Globulin Ratio 1.3 (0.9-2) 03/19/22 03/19/22 03/18/22 Range/Units 07:59 07:22 23:57 WBC 10.42 (4.8-10.8) K/ul RBC 4.55 (3.93-5.22) M/uL Hgb 13.0 (12.0-16.0) g/dl Hct 39.5 (34.1-44.9) % MCV 86.8 (80.0-100.0) fL MCH 28.6 (25.0-34.0) pg MCHC 32.9 (32.0-36.0) g/dL RDW Std Deviation 52.6 H (36.4-46.3) fL RDW Coeff of Any 16.8 H (11.5-14.5) % Plt Count 310 (130-400) K/uL MPV 10.6 (9.4-12.3) fL Immature Gran % (Auto) 0.5 % Neut % (Auto) 70.6 % Lymph % (Auto) 20.2 % Pike % (Auto) 8.4 % Eos % (Auto) 0.1 % Baso % (Auto) 0.2 % Neut # (Auto) 7.36 H (1.4-6.5) K/uL Lymph # (Auto) 2.10 (1.2-3.4) K/uL Pike # (Auto) 0.88 H (0.24-0.82) K/uL Eos # (Auto) 0.01 (0-0.50) K/uL Baso # (Auto) 0.02 (0-0.2) K/uL Immature Gran # (Auto) 0.05 H (0.00-0.02) K/uL VBG pH (7.36-7.41) Sodium (136-145) mmol/L Potassium (3.5-5.1) mmol/L Chloride (98-107) mmol/L Carbon Dioxide (21-32) mmol/L Anion Gap (3-11) BUN (6-23) mg/dl Creatinine (0.6-1.2) mg/dl Est Cr Clr Drug Dosing ml/min Est GFR ( Amer) ml/min Est GFR (Non-Af Amer) ml/min BUN/Creatinine Ratio (10-20) Glucose (70-99(Fasting)) mg/dl POC Glucose 204 H 192 H (70-99) mg/dl Calcium (8.5-10.1) mg/dl Phosphorus (2.5-4.9) mg/dl Magnesium (1.7-2.4) mg/dl Total Bilirubin (0.2-1.0) mg/dl AST (13-39) U/L ALT (7-52) U/L Alkaline Phosphatase (34-104) U/L Total Protein (6.0-8.3) gm/dl Albumin (3.4-5.0) gm/dl Globulin (2.5-4.0) gm/dl Albumin/Globulin Ratio (0.9-2) 03/18/22 03/18/22 03/18/22 Range/Units 19:57 17:49 16:17 WBC (4.8-10.8) K/ul RBC (3.93-5.22) M/uL Hgb (12.0-16.0) g/dl Hct (34.1-44.9) % MCV (80.0-100.0) fL MCH (25.0-34.0) pg MCHC (32.0-36.0) g/dL RDW Std Deviation (36.4-46.3) fL RDW Coeff of Any (11.5-14.5) % Plt Count (130-400) K/uL MPV (9.4-12.3) fL Immature Gran % (Auto) % Neut % (Auto) % Lymph % (Auto) % Pike % (Auto) % Eos % (Auto) % Baso % (Auto) % Neut # (Auto) (1.4-6.5) K/uL Lymph # (Auto) (1.2-3.4) K/uL Pike # (Auto) (0.24-0.82) K/uL Eos # (Auto) (0-0.50) K/uL Baso # (Auto) (0-0.2) K/uL Immature Gran # (Auto) (0.00-0.02) K/uL VBG pH (7.36-7.41) Sodium (136-145) mmol/L Potassium (3.5-5.1) mmol/L Chloride (98-107) mmol/L Carbon Dioxide (21-32) mmol/L Anion Gap (3-11) BUN (6-23) mg/dl Creatinine (0.6-1.2) mg/dl Est Cr Clr Drug Dosing ml/min Est GFR ( Amer) ml/min Est GFR (Non-Af Amer) ml/min BUN/Creatinine Ratio (10-20) Glucose (70-99(Fasting)) mg/dl POC Glucose 152 H 147 H 156 H (70-99) mg/dl Calcium (8.5-10.1) mg/dl Phosphorus (2.5-4.9) mg/dl Magnesium (1.7-2.4) mg/dl Total Bilirubin (0.2-1.0) mg/dl AST (13-39) U/L ALT (7-52) U/L Alkaline Phosphatase (34-104) U/L Total Protein (6.0-8.3) gm/dl Albumin (3.4-5.0) gm/dl Globulin (2.5-4.0) gm/dl Albumin/Globulin Ratio (0.9-2) 03/18/22 03/18/22 Range/Units 14:57 14:04 WBC (4.8-10.8) K/ul RBC (3.93-5.22) M/uL Hgb (12.0-16.0) g/dl Hct (34.1-44.9) % MCV (80.0-100.0) fL MCH (25.0-34.0) pg MCHC (32.0-36.0) g/dL RDW Std Deviation (36.4-46.3) fL RDW Coeff of Any (11.5-14.5) % Plt Count (130-400) K/uL MPV (9.4-12.3) fL Immature Gran % (Auto) % Neut % (Auto) % Lymph % (Auto) % Pike % (Auto) % Eos % (Auto) % Baso % (Auto) % Neut # (Auto) (1.4-6.5) K/uL Lymph # (Auto) (1.2-3.4) K/uL Pike # (Auto) (0.24-0.82) K/uL Eos # (Auto) (0-0.50) K/uL Baso # (Auto) (0-0.2) K/uL Immature Gran # (Auto) (0.00-0.02) K/uL VBG pH (7.36-7.41) Sodium (136-145) mmol/L Potassium (3.5-5.1) mmol/L Chloride (98-107) mmol/L Carbon Dioxide (21-32) mmol/L Anion Gap (3-11) BUN (6-23) mg/dl Creatinine (0.6-1.2) mg/dl Est Cr Clr Drug Dosing ml/min Est GFR ( Amer) ml/min Est GFR (Non-Af Amer) ml/min BUN/Creatinine Ratio (10-20) Glucose (70-99(Fasting)) mg/dl POC Glucose 212 H 210 H (70-99) mg/dl Calcium (8.5-10.1) mg/dl Phosphorus (2.5-4.9) mg/dl Magnesium (1.7-2.4) mg/dl Total Bilirubin (0.2-1.0) mg/dl AST (13-39) U/L ALT (7-52) U/L Alkaline Phosphatase (34-104) U/L Total Protein (6.0-8.3) gm/dl Albumin (3.4-5.0) gm/dl Globulin (2.5-4.0) gm/dl Albumin/Globulin Ratio (0.9-2) Diabetes Follow up Will follow up with PCP/hardboard supervisor. Hospital Course (1) DKA (diabetic ketoacidosis): Pt presented with 3 days of worsening nausea. She has been nausea since her gastric bypass in 12/2021, but has become more nauseous over the past 3 days. She has a recent admission for DKA 02/2022 in [place]. In the ED she was tachycardic with mildly elevated blood pressures. On admission, VBG pH 7.23, anion gap 26, potassium 3.3, bicarb 11, glucose 408. CXR was negative. CT abdomen/pelvis was notable for cholelithiasis without gallbladder wall thickening, and craig-en-Y gastric bypass; no bowel wall thickening and no obstruction noted. She was started in an isulin drip and admitted to the ICU where she stayed for a day at which time her anion gap closed and insulin gtt was switch to sq. Her blood glucose was stable on the floor and she will be discharged on home medications. Discussed diet and lifestyle modifications. Hemoglobin A1C was found to be 8.8. (2) Controlled type 2 diabetes mellitus with neurologic complication, with long- term current use of insulin: She will be discharged on her home regimen insulin- glulisine Inject up to 45 units a day which she titrates and 1000mg metformin BID (3) Nausea: Her nausea was mildly improved, but not resolved at discharge. If the nausea does not improved with the next 2 weeks could consider epigastric trigger point as a possible cause of nausea without vomiting. She should follow up with a pain management doctor for further evaluation/treatment if her nausea does not resolve. (4) Hypothyroidism: Continue home dose of levothyroxine (5) Depression with anxiety: Continue home medications- bupropion, sertraline (6) Hypertension: Chronic and stable, continue home medications (7) Dyslipidemia: Continue home mediations- atorvastatin (8) Elevated troponin: On admission, hsTroponin elevated to 15.5, repeat value 29.2 EKG: NSR, no overt sign of ischemic change Patient without CP at this time (9) Narcolepsy: Continue home medication- modafinil (10) Diabetic peripheral neuropathy: Continue home medication- gabapentin (11) Positive blood test: positive B-hCG -Patient is post menopause and it 56 years old. -Pelvic US unremarkable Total Time Total Time Spent Total Time Spent (In Minutes): <30 Discharge Plan Discharge Items Patient Disposition: Home - Self-Care Reason For Visit: DKA Discharge Diagnosis: DKA- resolved Activity: Resume your previous activity Non-emergency contact: Primary Care Provider Call non-emergency contact if: you have any medication questions Follow-up/Referrals: Shannen Best PA-C [Primary Care Provider] - Diet: Carb Consistent or DM2 Addtl Attending Provider Instructions: You were admitted to the hospital for Diabetic Ketoacidosis. You were treated with fluids and insulin. It is very important that you work on diet and lifestyle changes in order to control your blood sugars. Limiting simple carbohydrates like sugars and breads and increasing exercise can help to control you blood sugars. Continue to use the jonathan of your phone to track you insulin doses and continue to monitor your blood sugars after meals. Keep track of your blood sugars so you can discuss them with your primary care doctor and hardboard supervisor. Continue to work with you primary care doctor and surgeon to control you nausea. If you nausea does not improve by March 28, consider reaching out to a pain management doctor to discuss if a trigger point could be the cause. A discharge summary will be sent to your primary care physician to ensure continuity of care. Please bring this discharge summary with you to your next office appointment so that your provider can review it at that time. Follow-up appointments: Make a follow-up appointment with your PCP within the next week. It is very important that you follow up with them shortly after discharge from the hospital. Keep all your follow-up appointments as already scheduled. If you cannot make an appointment, notify your provider. Medications: Your medication list has been reviewed and reconciled upon discharge to ensure accuracy and continuity of care. An updated list of all your medications is included with your hospital discharge paperwork. Please review this list closely, and make note of any changes. We did not make any changes to your home medications. CONTACT YOUR PRIMARY CARE PROVIDER if you experience any of the following: Nausea gets worse or is not improving Difficulty following your treatment plan, or difficulty taking medications CALL 911 OR GO TO THE EMERGENCY DEPARTMENT if you experience any of the following: Sudden, severe abdominal pain or nausea/vomiting Severe chest pain, or chest pain that radiates (moves) to your jaw or arm Sudden, severe shortness of breath or difficulty breathing Thank you for allowing us to participate in your care. Pending Studies at Discharge: No Stand-Alone Forms: My [facility] Medications and DC Order Prescriptions: Continued Apidra SoloStar U-100 Insulin 100 unit/mL insulin pen See Rx Instructions .ROUTE .COMPLEX Qty: 15 5RF Rx Instructions: Inject up to 45 units a day. May titrate as needed. levothyroxine 100 mcg tablet 100 mcg PO DAILY Qty: 30 4RF modafinil 200 mg tablet 200 mg PO DAILY bupropion HCl 150 mg Tablet Extended Release 12 Hr 150 mg PO DAILY atorvastatin 10 mg Tablet 10 mg PO DAILY sertraline [Zoloft] 100 mg Tablet 150 mg PO DAILY cyanocobalamin (vitamin B-12) [Vitamin B-12] 1,000 mcg Tablet 1,000 mcg PO DAILY Rx Instructions: Takes sl metformin 1,000 mg Tablet 1,000 mg PO BID lisinopril 5 mg Tablet 5 mg PO DAILY cholecalciferol (vitamin D3) [Vitamin D3] 2,000 unit Tablet 2,000 unit PO DAILY acetaminophen [Tylenol Extra Strength] 500 mg Tablet 500 mg PO Q6H PRN (Reason: Pain) gabapentin 300 mg capsule 300 mg PO HS Centrum Chewables 8 mg-400 mcg- 10 mcg Tablet,Chewable 1 tab PO DAILY Liquid Calcium Citrate & D3 2 tbsp PO DAILY Discharge Orders: Discharge Order (Routine); Ordered 03/19/22 Ordered By: Helen Zhang Admission Data Admit Date/Time: 03/17/22 22:28 Attending Provider: Mike Cuenca Admit Provider: Sajan Aguila Primary Care Provider: Shannen Best Other Providers: Heriberto Melendez ; Medardo Martini. Other Interventions: Discharge Summary Assessment (RN) Last Done: 03/19/22 13:16 Supervising Physician Co-Signing Physician Notes I personally examined the patient and verified all garza points of history and exam, discussed case, and agree with decision making with Dr Zhang Feeling better but still nauseated. Notes that she was nauseated prior to admissionshe had been put on a clear liquid diet by her bariatric surgeon, noted it was helping some. In discussing whether or not she feels up to going homeshe notes that she definitely feels up to going home and would very much like to go home. Discussed insulin managementshe notes that she has an jonathan on her phone into which she inputs her Premeal glucose in the grams of carbs that she is eatingand it gives her an amount of insulin to take. She notes that she then checks her sugars postprandially although she does not quite recall the results. Vitals noted, in general she is awake and alert pleasant but does appear somewhat nauseated no distress. HEENT normocephalic atraumatic mucous membranes moist. Breathing unlabored no accessory muscle use good effort. Abdomen is soft nondistended she has faintly palpable left upper quadrant predominantly left epigastric trigger points (probably 2 that I can feel that are somewhat tender but not overly obvious). Skin no rashes no pallor or icterus. DKAresolved. Stable for home Uncontrolled diabetes on insulindiscussed that she seems to be doing most everything righthowever, I strongly suspect that she is probably under bolusing at mealsasked her to continue doing things exactly as she is, but then to look at her postprandial glucoses with a goal of more like [id number], and if she is seeing things significantly higher than that, probably add a bit to the bolus that her phone based jonathan is telling her. Follow-up with her endocrine Nauseacontinue management as per bariatric surgeon. However, we discussed that if it does not improve over the next week or 2, given that she does have a few questionably palpable trigger pointscertainly her nausea without vomiting and the history that she has with abdominal procedures, trigger points could be quite possibleand if the nausea does not improve would seek injection from pain management Safe/stable for home Resident Activity Tracking Resident Involvement: Resident Care Provided Care Provided: Adult Hospital Medicine
--- NOTE | 2022-03-19 19:51 | Billing Data ---
Date of Service March 19, 2022 Coding Level of Care Code D/C DAY MANAGEMENT <30 MINS
--- NOTE | 2022-03-28 12:36 | Coding Query ---
CODING QUERY To promote full compliance with coding requirements relating to patient care, provider participation is requested in all cases of agricultural extension specialist uncertainty. Please assist us with the question(s) below: Please clarify the meaning of TOMAS. TOMAS is not a valid abbreviation. Thank you. ( x ) Acute Kidney Injury ( ) Acute Kidney Insufficiency ( ) Other (Specify): Principal Diagnosis: "that condition established after study, to be chiefly responsible for occasioning the admission of the patient to the hospital for care." Co-Existing Principal Diagnosis: "when two or more diagnoses equally meet the criteria for principal diagnosis as determined by the circumstances of admission, diagnostic work up, and/or therapy provided, and the Alphabetic Index, Tabular List, or another coding guideline does not provide sequencing direction, any one of the diagnoses may be sequenced first." "When the physician has documented what appears to be a current diagnosis in the body of the record, but has not included the diagnosis in the final diagnostic statement, the physician should be asked whether the diagnosis should be added." (Source Coding [facility] 2 QTR90. p3-4) ROLAND
== END 2022-03-19 14:50 | disposition home or self-care (01) | DRG 638 ==
LOC: ED 18:41 → 1E 22:28 → SUATTDRO 22:28 → 1E 03-18 00:17 → 2W 03-18 18:46